=== PATIENT | female | born 1950 ===

== ENCOUNTER 2018-10-21 05:24 | Inpatient (IN) | payer MEDICARE, MEDICAID ==
[~2018-10-21] VITALS: Ht 149.9 cm; Wt 62.6 kg
[2018-10-21] VITALS (21 sets, daily range): BP systolic 104–161; BP diastolic 65–104
[2018-10-21] MEDS ORDERED: LR 1000ml 1,000 ML IVLG SCH (06:26)
--- NOTE | 2018-10-21 06:28 | Anethesia Preoperative Eval ---
Anesthesia Pre-op PMH/ROS General Date of Evaluation: Oct 21, 2018 Time of Evaluation: 06:54 Anesthesiologist: Zac ASA Score: ASA 3 Mallampati Score Class I : Soft palate, uvula, fauces, pillars visible Class II: Soft palate, uvula, fauces visible Class III: Soft palate, base of uvula visible Class IV: Only hard plate visible Mallampati Classification: Class II Surgeon: Jessie Diagnosis: R Knee Pain Surgical Procedure: R Knee Total Arthroplasty Anesthesia History: none Family History: no anesthesia problems Allergies: Coded Allergies: No Known Allergies (Unverified , 10/14/18) Medications: see eMAR Patient NPO?: Yes NPO Date: Oct 20, 2018 NPO Time: 1999 Past Medical History Cardiovascular: Reports: HTN Pulmonary: Reports: COPD Gastrointestinal/Genitourinary: Reports: GERD Neurologic/Psychiatric: Reports: depression/anxiety Anesthesia Pre-op Phys. Exam Physician Exam Last Vital Signs Date Time Temp Pulse Resp B/P (MAP) Pulse Ox O2 Delivery O2 Flow Rate FiO2 10/21/18 06:15 97.8 84 18 115/80 (92) 98 Constitutional: NAD Neurologic: CN 2-12 intact Cardiovascular: RRR Respiratory: CTA Gastrointestinal: S/NT/ND Airway Exam Mallampati Score: Class II MO: full ROM: limited Teeth: missing, intact Anesthesia Pre-op A/P Risk Assessment & Plan Assessment: ASA 3 Plan: GA, Spinal , SED Status Change Before Surgery: No Pre-Antibiotics Dru Grams Ancef IV Given Within 1 Hr of Incision: Yes Time Given: 07:16 Yung Frank MD Oct 21, 2018 06:28
[2018-10-21] MEDS ORDERED: Hydromorphone 0.5mg/0.5ml inj IVP PRN (06:30)
[2018-10-21] MEDS ORDERED: oxyCODONE HCL/Acetaminophen 5/325mg ORAL PRN (06:30)
[2018-10-21] MEDS ORDERED: Meperidine 50mg/ml Inj(FOR RIGORS ONLY) IVP PRN (06:30)
[2018-10-21] MEDS ORDERED: Tranexamic Acid 1,000 MG in NS 65 ML IVPB ONE (06:30)
[2018-10-21] MEDS ORDERED: cloNIDine 1000mcg/10ml inj ONE (06:30)
[2018-10-21] MEDS ORDERED: Norco 5mg/325mg tab ORAL PRN ×2 (06:30→12:00)
[2018-10-21] MEDS ORDERED: HYDROcodone/Acetamin 7.5/325 tab ORAL PRN ×2 (06:30→12:00)
[2018-10-21] MEDS ORDERED: Metoclopramide 10mg/2ml Inj IVP PRN (06:30)
[2018-10-21] MEDS ORDERED: Atropine Sulfate 0.4mg/ml inj IVP PRN (06:30)
[2018-10-21] MEDS ORDERED: fentaNYL 100 mcg/2 mL IV PRN (06:30)
[2018-10-21] MEDS ORDERED: DiphenhydrAMINE 50mg/ml Inj IVP PRN (06:30)
[2018-10-21] MEDS ORDERED: Midazolam 2mg/2ml Inj IVP PRN (06:30)
[2018-10-21] MEDS ORDERED: LORazepam Inj 2mg/ml 1ml IV PRN (06:30)
[2018-10-21] MEDS ORDERED: Ketorolac 30mg Inj IV PRN ×2 (06:30)
[2018-10-21] MEDS ORDERED: ZOLPIDEM TARTRA10 MG ORAL (06:31)
[2018-10-21] MEDS ORDERED: CITALOPRAM HBR20 M1 ORAL (06:31)
[2018-10-21] MEDS ORDERED: Bupivacaine 0.5% Inj 30 ml vial INJ ONE (06:31)
[2018-10-21] MEDS ORDERED: STIOLTO RESPIMAT4 GM IH (06:31)
[2018-10-21] MEDS ORDERED: IBUPROFEN600 MG ORAL (06:31)
[2018-10-21] MEDS ORDERED: LOSARTAN POTAS100 MG ORAL (06:31)
[2018-10-21] MEDS ORDERED: EPINEPHrine 1mg/1ml Amp ONE (06:32)
[2018-10-21] MEDS ORDERED: Alfentanil 2ml Inj ONE (06:36)
[2018-10-21] MEDS ORDERED: Propofol 200mg/20ml IV ONE (06:36)
[2018-10-21] MEDS ORDERED: Dexamethasone 4mg/ml vial ONE (06:36)
[2018-10-21] MEDS ORDERED: Lidocaine 1% MPF 10mg/ml 5ml ONE (06:36)
[2018-10-21] MEDS ORDERED: Sodium Chloride 10ml vial INJ ONE (06:36)
[2018-10-21] MEDS ORDERED: Bacitracin 50000 Units Vial ONE (06:51)
[2018-10-21] MEDS ORDERED: NeoSporin Gu Irrig 1ml Amp IRRIG ONE ×2 (06:51→08:27)
--- NOTE | 2018-10-21 06:58 | Pre-Procedure Note/Attestation ---
Pre-Procedure Note/Attestation Complete Prior to Procedure Planned Procedure: right Procedure Narrative: Rt total knee arthroplasty Indications for Procedure Pre-Operative Diagnosis: rt knee arthritis Attestation I attest that I discussed the nature of the procedure; its benefits; risks and complications; and alternatives (and the risks and benefits of such alternatives ), prior to the procedure, with the patient (or the patient's legal community health program representative). I attest that, if there was a reasonable possibility of needing a blood transfusion, the patient (or the patient's legal community health program representative) was given the [facility] standardized written summary, pursuant to the [employer] Blood Safety Act ([place] Health and Safety Code # 1645, as amended). I attest that I re-evaluated the patient just prior to the surgery and that there has been no change in the patient's H&P, except as documented below: none Duran Roman MD Oct 21, 2018 06:58
[2018-10-21] MEDS ORDERED: NS Irrig 1000ml ONE (07:00)
[2018-10-21] MEDS ORDERED: NS Irrig 2000ml IRRIG ONE ×2 (07:00→08:27)
[2018-10-21] MEDS ORDERED: LR 1000ml ONE (07:00)
[2018-10-21] MEDS ORDERED: Sterile Water Irrig 1000ml IRRIG ONE (07:00)
[2018-10-21] MEDS ORDERED: Milk of Magnesia 30ml Ud ORAL PRN (07:00)
[2018-10-21] MEDS ORDERED: celeBREX 200mg Cap **SURGERY PATIENTS ONLY ORAL ONE (07:00)
[2018-10-21] MEDS ORDERED: ceFAZolin 1gm IVPB IVPB ONE ×2 (07:00)
[2018-10-21] MEDS ORDERED: oxyCONTIN 20mg tab ORAL ONE (07:00)
[2018-10-21] MEDS ORDERED: ePHEDrine 50mg/ml Inj ONE ×4 (07:26→08:24)
--- NOTE | 2018-10-21 07:37 | Immediate Post-Op Evaluation ---
Immediate Post-Op Evalulation Immediate Post-Op Evalulation Procedure: R Knee Total Arthroplasty Date of Evaluation: Oct 21, 2018 Time of Evaluation: 10:05 IV Fluids: 1000 LR Blood Products: 0 Estimated Blood Loss: 25 Urinary Output: 0 Blood Pressure Systolic: 121 Blood Pressure Diastolic: 75 Pulse Rate: 93 Respiratory Rate: 16 O2 Sat by Pulse Oximetry: 100 Temperature (Fahrenheit): 97.5 Pain Score (1-10): 1 Nausea: No Vomiting: No Complications 0 Patient Status: awake, reacts, patent, none Hydration Status: adequate Dru Grams Ancef IV Given Within 1 Hr of Incision: Yes Time Given: 07:16 Yung Frank MD Oct 21, 2018 07:37
[2018-10-21] MEDS ORDERED: Bacitracin 50000 Units Vial IRRIG ONE (08:26)
[2018-10-21] MEDS: celeBREX 200mg Cap **SURGERY PATIENTS ONLY ORAL SCH (09:00)
[2018-10-21] MEDS ORDERED: Metoprolol 5mg/5ml Inj ONE (09:02)
--- NOTE | 2018-10-21 09:42 | Brief Operative Note ---
Immediate Post Operative Note Operative Note Chief Complaint: rt knee pain Pre-op Diagnosis: rt knee arthritis Procedure: rt total knee arthroplasty Post-op Diagnosis: same as pre-op Findings: consistent w/pre-op dx studies Surgeon: md maribel Holder Pile Driving: juan daniel vargas Anesthesiologist: md sally Anesthesia: general Specimen: yes Complications: none Condition: stable Fluids: ns Estimated Blood Loss: minimal Drains: none Implant(s) used?: Yes - Mari Acosta Oct 21, 2018 09:42
--- NOTE | 2018-10-21 11:05 | Diagnostic Imaging Report ---
Indication: Pain. Status post total knee arthroplasty. Technique: XRAY Knee 1-2v R Comparison: None Findings: 2 portable images were obtained of the right knee. Status post total knee arthroplasty and patellar resurfacing. No periprosthetic fracture identified. The lucency is noted at the inferior aspect of the tibial component. No bone cement is noted. Gas is noted within the joint and in the subcutaneous tissues, consistent with recent operation. IMPRESSION: Immediate postoperative appearance status post total knee arthroplasty. No evidence of periprosthetic fracture. Some lucency noted at the inferior aspect of the tibial component. No bone cement appreciated.
[2018-10-21] MEDS ORDERED: HYDROmorphone 1mg/ml Carpuject SUBQ PRN (12:00)
[2018-10-21] MEDS: D5 1/2NS w/KCl 20mEq 1,000 ML IV SCH (13:19)
[2018-10-21] MEDS: Docusate 100mg cap ORAL SCH ×3 (13:19→21:29)
--- NOTE | 2018-10-21 14:30 | Operative Note - Dictated ---
DATE OF OPERATION: 10/21/2018 PREOPERATIVE DIAGNOSIS: Right knee end-stage arthritis with significant pain. POSTOPERATIVE DIAGNOSIS: Right knee end-stage arthritis with significant pain. PROCEDURE: Right total knee arthroplasty using [place] Triathlon System, size 1 femur, size 2 tibia, size 11 mm ultra cross-linked poly and a 27 mm patellar poly, all cemented. SURGEON: Duran Roman M.D. AUTO REPAIR TECHNICIAN: Mari Morgan PA-C. ANESTHESIOLOGIST: Yung Frank M.D. ANESTHESIA: Spinal anesthesia. TOURNIQUET TIME: 70 minutes. ESTIMATED BLOOD LOSS: Less than 20 mL. COMPLICATIONS: None. BRIEF HISTORY: The patient is a very pleasant 68-year-old female, who has had ongoing right knee pain. She failed nonoperative treatment. She had injection, physical therapy, and continued to have pain. She was miserable she cannot walk morethan one block. After full discussion of risks and benefits of the surgery and complications associated with it including infection, bleeding, neurovascular complications, possibility of continued pain, stiffness, DVT, PEs, infection requiring resection arthroplasty and other surgery that may arise, she opted for surgical treatment as described above. OPERATIVE PROCEDURE: The patient was brought to the operating room and was placed supine. All pressure points were well-padded. Spinal anesthesia was induced and right knee was prepped and draped in usual sterile fashion. The right leg was exsanguinated and tourniquet was inflated to 275 mmHg. Standard anterior approach to the knee was undertaken. The incision was taken through the subcutaneous tissue. Medial parapatellar arthrotomy was performed. Hemostasis was obtained. The medial release of the deep fibers of the MCL was performed. The medial and lateral meniscus were removed. ACL and PCL were removed. The intramedullary access into the femur was then obtained and a distal femoral cut and 5 degrees of valgus was performed. At this point, measurements were made and size 1 appeared to be the right measurement. The cutting guide was placed in 3 degrees external rotation and anterior, posterior, and chamfer cuts were performed without any complication. At this point, a trial femur was applied and slightly lateralized. This fit perfectly. The PEG holes were drilled. The care was given to the tibia at this point. The posterior, medial, lateral retractors were placed in and the tibia was exposed. Extramedullary guide was used to align the mechanical axis. At this point, a minimal tibial cut was made, taken off 2 mm of the most involved side. This was the very balanced cut. This was a minimal bone resection. At this point, trialing was performed and size 2 trial appeared to be the right size. The tibial size 2 was then placed and it was punched. At this point, trialing with femur and tibia and 11 mm insert was applied. There was full extension, full flexion, excellent stability at 0, 40 degrees, 60 degrees, and 90 degrees of flexion. There was no anteroposterior instability. Wounds were thoroughly irrigated. The care was given to the patella. The patella was everted. This was a very small patella. This measured 18 mm. Therefore, a minimal patellar cut was obtained to leave a 13 mm patellar to avoid avascular necrosis. At this point, drilling of the patella was performed and a 27 mm patella appeared to be the right size. At this point, the patellar trial, femoral trial, and tibial trial and 11 mm poly was then all trialed. There was excellent patellofemoral tracking, great range of motion and great stability as described previously. There was no subluxation of the patellofemoral articulation. At this point, all wounds were thoroughly irrigated using copious amount of fluid. All trial components were removed. The cement was mixed and the bones were dried using suction and sponges. Cement was mixed and applied and tibial component, femoral component, patella components were all cemented with compression. The excess cement was removed. Once this was completed, trialing was again performed and an 11 mm poly appeared to be the right size. Therefore, an ultra cross-linked 11 mm poly was then applied and locked in. The locking mechanism was checked and rechecked and appeared to be perfect. At this point, the entire construct was reduced and range of motion and stability and patellofemoral tracking was checked as previous and appeared to be perfect as described previously. At this point, all wounds were thoroughly irrigated using copious amount of fluid. The tourniquet was deflated and there was minimal bleeding, which was stopped. Once hemostasis was obtained, the extensor mechanism was closed using #1 Vicryl suture. Subcutaneous tissue was closed using 2-0 Vicryl suture. Skin was closed using 3-0 Monocryl suture. Dermabond was applied and sterile dressing was applied and the patient was taken to recovery room in stable condition. All lap counts and instrument counts were correct. Duran Roman M.D. DR: KRISTINA JOB#: [id number] CC: RYLIE
[2018-10-21 14:33] LABS: HEMATOCRIT 39.1 % (37.0-47.0); HEMOGLOBIN 12.9 G/DL (12.0-16.0); MEAN CORPUSCULAR VOLUME 92 FL (80-99); PLATELET COUNT 278 K/UL (150-450); RED BLOOD COUNT 4.25 M/UL (4.20-5.40); RED CELL DISTRIBUTION WIDTH 11.5 % (11.6-14.8); WHITE BLOOD COUNT 13.6 K/UL (4.8-10.8)
[2018-10-21 14:41] LABS: ANION GAP 6 mmol/L (5-15); BLOOD UREA NITROGEN 13 mg/dL (7-18); CALCIUM 8.8 MG/DL (8.5-10.1); CARBON DIOXIDE 30 MMOL/L (21-32); CHLORIDE 101 MMOL/L (98-107); CREATININE 0.9 MG/DL (0.55-1.30); POTASSIUM 4.8 MMOL/L (3.5-5.1); SODIUM 137 MMOL/L (136-145)
[2018-10-21] MEDS ORDERED: ceFAZolin sod 1 GM in D5W 55 ML IV SCH (15:00)
[2018-10-21] MEDS ORDERED: Albuterol/Ipratropium 3ml neb HHN PRN (15:00)
--- NOTE | 2018-10-21 15:01 | Consultation ---
Consult Note Consult Note PULMONARY CONSULTATION 10/21/18 REFERRING PHYSICIAN: Duran Roman MD REASON FOR CONSULTATION: COPD HPI: 68 F former smoker h/o COPD on/off home O2 minimally compliant with Stiolto now POD 0 S/P R TKA. She is still lethargic post-op so hx is limited. She states she uses her inhalers some of the time, no nebs, occ O2. No SOB @ rest, some AGRCIAS but exercise is limited by DJD. No F/C/CP, no wheezing. Post- op she is AFVSS, stable on 3L. She is unsure who her dishcloth folder is. PMH: COPD, HTN, DJD PSH: R TKA ALL: NKDA Active Scripts Medications Dose Route/Sig Max Daily Dose Days Date Category Stiolto Respimat Inhal [place] (Tiotropium Br/Olodaterol HCl) 4 Gm Mist.inhal 2.5 Mcg IH PRN 10/21/18 Reported Zolpidem Tartrate* (Zolpidem Tartrate) 10 Mg Tablet 10 Mg ORAL BEDTIME PRN 10/21/18 Reported Losartan Potassium 100 Mg Tablet 100 Mg ORAL DAILY 10/21/18 Reported Citalopram Hbr* (Citalopram Hydrobromide) 20 Mg Tablet 20 Mg ORAL DAILY 10/21/18 Reported Motrin* (Ibuprofen) 600 Mg Tablet 800 Mg ORAL FOUR TIMES A DAY 10/21/18 Reported SHx: Former smoker quit 10 years ago, no drug or EtOH FHx: N/C ROS: Neg other than HPI PE: Last 24 Hour Vital Signs Date Time Temp Pulse Resp B/P (MAP) Pulse Ox O2 Delivery O2 Flow Rate FiO2 10/21/18 13:30 97.4 103 18 128/85 (99) 97 10/21/18 12:30 97.3 105 16 115/66 (82) 96 10/21/18 11:30 98.1 102 18 115/68 (84) 95 10/21/18 11:00 97.8 102 18 131/74 (93) 99 10/21/18 11:00 Nasal Cannula 3.0 10/21/18 10:47 97.8 98 13 123/75 98 Nasal Cannula 3 10/21/18 10:40 99 15 117/76 100 Nasal Cannula 3 10/21/18 10:25 93 15 129/72 100 Nasal Cannula 3 10/21/18 10:15 94 16 129/72 100 Nasal Cannula 3 10/21/18 10:04 96 16 121/78 100 Simple Mask 6 10/21/18 09:59 95 17 121/77 100 Simple Mask 6 10/21/18 09:54 97.5 94 16 121/75 99 Simple Mask 6 10/21/18 09:53 93 16 100 10/21/18 06:34 Room Air 10/21/18 06:15 97.8 84 18 115/80 (92) 98 NAD, lethargic post op NC/AT, OPC c MMM Supple s LAD or JVD CTA but distant RRR S/NT/ND c NABS No C/C/E, R leg in immobilizer/dressed Laboratory Tests Test 10/21/18 14:15 White Blood Count 13.6 K/UL (4.8-10.8) H Red Blood Count 4.25 M/UL (4.20-5.40) Hemoglobin 12.9 G/DL (12.0-16.0) Hematocrit 39.1 % (37.0-47.0) Mean Corpuscular Volume 92 FL (80-99) Mean Corpuscular Hemoglobin 30.4 PG (27.0-31.0) Mean Corpuscular Hemoglobin Concent 33.0 G/DL (32.0-36.0) Red Cell Distribution Width 11.5 % (11.6-14.8) L Platelet Count 278 K/UL (150-450) Mean Platelet Volume 6.9 FL (6.5-10.1) Neutrophils (%) (Auto) % (45.0-75.0) Lymphocytes (%) (Auto) % (20.0-45.0) Monocytes (%) (Auto) % (1.0-10.0) Eosinophils (%) (Auto) % (0.0-3.0) Basophils (%) (Auto) % (0.0-2.0) Differential Total Cells Counted 100 Neutrophils % (Manual) 92 % (45-75) H Lymphocytes % (Manual) 7 % (20-45) L Monocytes % (Manual) 1 % (1-10) Eosinophils % (Manual) 0 % (0-3) Basophils % (Manual) 0 % (0-2) Band Neutrophils 0 % (0-8) Platelet Estimate Adequate Platelet Morphology Normal Red Blood Cell Morphology Normal Sodium Level 137 MMOL/L (136-145) Potassium Level 4.8 MMOL/L (3.5-5.1) Chloride Level 101 MMOL/L (98-107) Carbon Dioxide Level 30 MMOL/L (21-32) Anion Gap 6 mmol/L (5-15) Blood Urea Nitrogen 13 mg/dL (7-18) Creatinine 0.9 MG/DL (0.55-1.30) Estimat Glomerular Filtration Rate > 60 mL/min (>60) Glucose Level 194 MG/DL (74-106) H Calcium Level 8.8 MG/DL (8.5-10.1) Assessment/Plan ASSESSMENT: DDD S/P R TKA (10/21 Dr. Roman) COPD on/off home O2 Post-op hypoxemia 2/2 underlying COPD, anesthesia and atelectasis Former smoker HTN PLAN: Optimize pulmonary hygiene/mobilize as tolerated Titrate down FiO2 to keep SaO2 > 90% Advair & Spiriva (auto sub for Stiolto) RTC and PRN DUOneb HHN's IS Post-op care per ortho Pain control/supportive care DVT Px: LMWH CXR ordered MD Ezio Meng Ashkan L. MD Oct 21, 2018 15:01
[2018-10-21] MEDS: Enoxaparin 30mg Inj SUBQ SCH (15:23)
[2018-10-21] MEDS ORDERED: NS 250 ML IVPB ONE (17:30)
[2018-10-21] MEDS ORDERED: Tubing IV Secondary IV ONE (17:56)
[2018-10-21] MEDS: Advair 250/50 Inhaler - 14 dose INH SCH (18:00)
[2018-10-21] MEDS ORDERED: Sodium Chloride 500ML 500 ML IV ONE (18:15)
[2018-10-21] MEDS ORDERED: Naloxone 2 MG in D5W 500ml 498 ML IV SCH (18:30)
[2018-10-21] MEDS ORDERED: Albuterol/Ipratropium 3ml neb HHN SCH (19:00)
[2018-10-21] MEDS ORDERED: Naloxone 0.4mg/ml Inj IVP SCH (19:00)
--- NOTE | 2018-10-21 20:07 | History and Physical ---
History of Present Illness General Date patient seen: Oct 21, 2018 Time patient seen: 19:56 Reason for Hospitalization: TKR Present Illness Allergies: Coded Allergies: No Known Allergies (Unverified , 10/14/18) Medication History Scheduled Citalopram Hydrobromide* (Citalopram Hbr*), 20 MG ORAL DAILY, (Reported) Ibuprofen* (Motrin*), 800 MG ORAL FOUR TIMES A DAY, (Reported) Losartan Potassium (Losartan Potassium), 100 MG ORAL DAILY, (Reported) Tiotropium Br/Olodaterol HCl (Stiolto Respimat Inhal [place]), 2.5 MCG IH PRN, ( Reported) Scheduled PRN Zolpidem Tartrate* (Zolpidem Tartrate*), 10 MG ORAL BEDTIME PRN for Insomnia, ( Reported) Patient History Healthcare decision maker seth() Resuscitation status Full Code Advanced Directive on File No Review of Systems ROS Narrative patient has hypercapnia transfered to ICU and got her on bipap and narcan was given. per family has historyof severe COPd has been a smoker 2 pack per day int he past has had a hospitlaization last year one week in for pneumonia she was tachycardic and became altered i was notified to further eval she was givennorco had ABG noted othave co2 over 100 bipap was started and transfered to icu more improved now responds to verb al stimulio Physical Exam General Appearance: WD/WN, other - has bipap on HEENT: normocephalic Neck: other - no JVD Respiratory/Chest: other - distnat breasth sounds prolonged exp phae no wheezing Cardiovascular/Chest: other - tachy regular no rubs Abdomen: non tender, soft Extremities: non-pitting - hemovac, other - no edema Neurologic: other - responds to verbal stimuli Last 24 Hour Vital Signs Date Time Temp Pulse Resp B/P (MAP) Pulse Ox O2 Delivery O2 Flow Rate FiO2 10/21/18 19:33 103 15 Bi-pap 40 10/21/18 19:30 103 15 94 Facial 40 10/21/18 17:00 105 17 124/80 (95) 96 10/21/18 16:50 110 16 153/94 (113) 96 10/21/18 16:00 97.2 106 18 112/70 (84) 98 10/21/18 13:30 97.4 103 18 128/85 (99) 97 10/21/18 12:30 97.3 105 16 115/66 (82) 96 10/21/18 11:30 98.1 102 18 115/68 (84) 95 10/21/18 11:00 97.8 102 18 131/74 (93) 99 10/21/18 11:00 Nasal Cannula 3.0 10/21/18 10:47 97.8 98 13 123/75 98 Nasal Cannula 3 10/21/18 10:40 99 15 117/76 100 Nasal Cannula 3 10/21/18 10:25 93 15 129/72 100 Nasal Cannula 3 10/21/18 10:15 94 16 129/72 100 Nasal Cannula 3 10/21/18 10:04 96 16 121/78 100 Simple Mask 6 10/21/18 09:59 95 17 121/77 100 Simple Mask 6 10/21/18 09:54 97.5 94 16 121/75 99 Simple Mask 6 10/21/18 09:53 93 16 100 10/21/18 06:34 Room Air 10/21/18 06:15 97.8 84 18 115/80 (92) 98 Intake and Output 10/20/18 10/21/18 19:00 07:00 # Voids 1 Laboratory Tests Test 10/21/18 14:15 10/21/18 18:24 White Blood Count 13.6 K/UL (4.8-10.8) H Red Blood Count 4.25 M/UL (4.20-5.40) Hemoglobin 12.9 G/DL (12.0-16.0) Hematocrit 39.1 % (37.0-47.0) Mean Corpuscular Volume 92 FL (80-99) Mean Corpuscular Hemoglobin 30.4 PG (27.0-31.0) Mean Corpuscular Hemoglobin Concent 33.0 G/DL (32.0-36.0) Red Cell Distribution Width 11.5 % (11.6-14.8) L Platelet Count 278 K/UL (150-450) Mean Platelet Volume 6.9 FL (6.5-10.1) Neutrophils (%) (Auto) % (45.0-75.0) Lymphocytes (%) (Auto) % (20.0-45.0) Monocytes (%) (Auto) % (1.0-10.0) Eosinophils (%) (Auto) % (0.0-3.0) Basophils (%) (Auto) % (0.0-2.0) Differential Total Cells Counted 100 Neutrophils % (Manual) 92 % (45-75) H Lymphocytes % (Manual) 7 % (20-45) L Monocytes % (Manual) 1 % (1-10) Eosinophils % (Manual) 0 % (0-3) Basophils % (Manual) 0 % (0-2) Band Neutrophils 0 % (0-8) Platelet Estimate Adequate Platelet Morphology Normal Red Blood Cell Morphology Normal Sodium Level 137 MMOL/L (136-145) Potassium Level 4.8 MMOL/L (3.5-5.1) Chloride Level 101 MMOL/L (98-107) Carbon Dioxide Level 30 MMOL/L (21-32) Anion Gap 6 mmol/L (5-15) Blood Urea Nitrogen 13 mg/dL (7-18) Creatinine 0.9 MG/DL (0.55-1.30) Estimat Glomerular Filtration Rate > 60 mL/min (>60) Glucose Level 194 MG/DL (74-106) H Calcium Level 8.8 MG/DL (8.5-10.1) Arterial Blood pH 7.086 (7.350-7.450) Arterial Blood Partial Pressure CO2 104.8 mmHg (35.0-45.0) *H Arterial Blood Partial Pressure O2 95.2 mmHg (75.0-100.0) Arterial Blood HCO3 30.8 mmol/L (22.0-26.0) H Arterial Blood Oxygen Saturation 95.0 % (95-100) Arterial Blood Base Excess -2.2 (-2-2) L Blair Test Positive Height (Feet): 4 Height (Inches): 11.00 Weight (Pounds): 138 Medications Current Medications Medications (Trade) Dose Ordered Sig/Singh Route PRN Reason Start Time Stop Time Status Last Admin Dose Admin Acetaminophen (Tylenol) 650 mg Q4H PRN ORAL temp>100.2 or headache 10/21/18 12:00 11/20/18 11:59 Acetaminophen/ Hydrocodone Bitart ([place] 5/325) 2 tab Q4H PRN ORAL pain scores 4-10 10/21/18 12:00 10/28/18 11:59 Acetaminophen/ Hydrocodone Bitart ([place] 7.5/325) 1 tab Q4H PRN ORAL Mild Pain (Pain Scale 1-3) 10/21/18 12:00 10/28/18 11:59 10/21/18 14:19 Albuterol/ Ipratropium (Albuterol/ Ipratropium) 3 ml Q4H PRN HHN Shortness of Breath 10/21/18 15:00 10/26/18 14:59 Albuterol/ Ipratropium (Albuterol/ Ipratropium) 3 ml Q6HRT HHN 10/21/18 19:00 10/26/18 18:59 Cefazolin Sodium 1 gm/Dextrose 55 ml @ 110 mls/hr Q8H IV 10/21/18 15:00 10/21/18 23:29 10/21/18 15:23 Celecoxib (CeleBREX) 200 mg DAILY ORAL 10/21/18 09:00 11/20/18 08:59 Dextrose/ Electrolytes 1,000 ml @ 75 mls/hr [id number] IV 10/21/18 13:00 11/20/18 12:59 10/21/18 13:19 Docusate Sodium (Colace) 100 mg THREE TIMES A DAY ORAL 10/21/18 13:00 11/20/18 12:59 10/21/18 13:19 Enoxaparin Sodium (Lovenox) 30 mg EVERY 12 HOURS SUBQ 10/21/18 16:00 11/20/18 15:59 10/21/18 15:23 Ferrous Sulfate (Feosol) 325 mg THREE TIMES A DAY ORAL 10/21/18 13:00 11/20/18 12:59 10/21/18 13:19 Hydromorphone HCl (Dilaudid) 1 mg Q4H PRN SUBQ Mild Pain (Pain Scale 1-3) 10/21/18 12:00 10/28/18 11:59 Hydromorphone HCl (Dilaudid) 2 mg Q4H PRN SUBQ Moderate Pain (Pain Scale 4-6) 10/21/18 12:00 10/28/18 11:59 10/21/18 16:21 Losartan Potassium (Cozaar) 100 mg DAILY ORAL 10/22/18 09:00 11/21/18 08:59 Magnesium Hydroxide (Mom) 30 ml DAILY PRN ORAL Constipation 10/21/18 07:00 11/20/18 06:59 Naloxone HCl (Narcan) 0.1 mg PRN IV . 10/21/18 18:45 11/20/18 18:44 10/21/18 18:37 Naloxone HCl (Narcan) 0.4 mg ONCE IVP 10/21/18 19:00 10/21/18 20:00 Ondansetron HCl (Zofran) 4 mg Q6H PRN IVP Nausea & Vomiting 10/21/18 12:00 11/20/18 11:59 10/21/18 16:26 Salmeterol Xinafoate/ Fluticasone (Advair 250/50 Diskus) 1 puffs BID INH 10/21/18 18:00 11/20/18 17:59 Temazepam (Restoril) 7.5 mg HSPRN PRN ORAL Insomnia 10/21/18 07:00 10/28/18 06:59 Tiotropium [place] (Spiriva Inhaler) 1 puff DAILY INH 10/22/18 09:00 11/21/18 08:59 Assessment/Plan Status Narrative s/p right total knee arthroplasty historyof severe COPd Cor narcosis historyof hyeprtension Assessment/Plan transfered to icu given narcan will stop the heavy norcotic only to use tylenol 1000 mg po tid for pain and tramdol 50 q 4 opr[address] pain for now place patient on bipap will need to further eval she is very sensitive to the pain medication supplement o2 dt prophyalxis with lovenox antibiotic prophyalxis [facility] history jass uses cardizem as patient may require to get Matthew Hopper MD Oct 21, 2018 20:07
--- NOTE | 2018-10-21 20:22 | General Progress Note ---
Assessment/Plan Assessment/Plan abg 7.086 7.183 104 79.1 95 88.5 29 30 started on bipap chest xray left hemidiaphragm id higher than right. tramadol for pain tylenol 1 gram tid stop oxycodone Subjective Allergies: Coded Allergies: No Known Allergies (Unverified , 10/14/18) Objective Last 24 Hour Vital Signs Date Time Temp Pulse Resp B/P (MAP) Pulse Ox O2 Delivery O2 Flow Rate FiO2 10/21/18 19:33 103 15 Bi-pap 40 10/21/18 19:30 103 15 94 Facial 40 10/21/18 17:00 105 17 124/80 (95) 96 10/21/18 16:50 110 16 153/94 (113) 96 10/21/18 16:00 97.2 106 18 112/70 (84) 98 10/21/18 13:30 97.4 103 18 128/85 (99) 97 10/21/18 12:30 97.3 105 16 115/66 (82) 96 10/21/18 11:30 98.1 102 18 115/68 (84) 95 10/21/18 11:00 97.8 102 18 131/74 (93) 99 10/21/18 11:00 Nasal Cannula 3.0 10/21/18 10:47 97.8 98 13 123/75 98 Nasal Cannula 3 10/21/18 10:40 99 15 117/76 100 Nasal Cannula 3 10/21/18 10:25 93 15 129/72 100 Nasal Cannula 3 10/21/18 10:15 94 16 129/72 100 Nasal Cannula 3 10/21/18 10:04 96 16 121/78 100 Simple Mask 6 10/21/18 09:59 95 17 121/77 100 Simple Mask 6 10/21/18 09:54 97.5 94 16 121/75 99 Simple Mask 6 10/21/18 09:53 93 16 100 10/21/18 06:34 Room Air 10/21/18 06:15 97.8 84 18 115/80 (92) 98 Intake and Output 10/20/18 10/21/18 19:00 07:00 # Voids 1 Laboratory Tests 10/21/18 14:15: White Blood Count 13.6H, Red Blood Count 4.25, Hemoglobin 12.9, Hematocrit 39.1 , Mean Corpuscular Volume 92, Mean Corpuscular Hemoglobin 30.4, Mean Corpuscular Hemoglobin Concent 33.0, Red Cell Distribution Width 11.5L, Platelet Count 278, Mean Platelet Volume 6.9, Neutrophils (%) (Auto) , Lymphocytes (%) (Auto) , Monocytes (%) (Auto) , Eosinophils (%) (Auto) , Basophils (%) (Auto) , Differential Total Cells Counted 100, Neutrophils % ( Manual) 92H, Lymphocytes % (Manual) 7L, Monocytes % (Manual) 1, Eosinophils % ( Manual) 0, Basophils % (Manual) 0, Band Neutrophils 0, Platelet Estimate Adequate, Platelet Morphology Normal, Red Blood Cell Morphology Normal, Sodium Level 137, Potassium Level 4.8, Chloride Level 101, Carbon Dioxide Level 30, Anion Gap 6, Blood Urea Nitrogen 13, Creatinine 0.9, Estimat Glomerular Filtration Rate > 60, Glucose Level 194H, Calcium Level 8.8 10/21/18 18:24: Arterial Blood pH 7.086*L, Arterial Blood Partial Pressure CO2 104.8*H, Arterial Blood Partial Pressure O2 95.2, Arterial Blood HCO3 30.8H, Arterial Blood Oxygen Saturation 95.0, Arterial Blood Base Excess -2.2L, Blair Test Positive 10/21/18 19:47: Arterial Blood pH 7.183*L, Arterial Blood Partial Pressure CO2 79.1*H, Arterial Blood Partial Pressure O2 88.5, Arterial Blood HCO3 29.1H, Arterial Blood Oxygen Saturation 95.1, Arterial Blood Base Excess -1.2, Blair Test Positive Height (Feet): 4 Height (Inches): 11.00 Weight (Pounds): 138 Matthew Helms MD Oct 21, 2018 20:22
[2018-10-21] MEDS: ceFAZolin sod 1 GM in D5W 55 ML IV SCH (22:42)
[2018-10-21] MEDS: dilTIAZem HCl 60mg tab ORAL SCH (23:30)
[2018-10-22] VITALS (24 sets, daily range): BP systolic 103–147; BP diastolic 58–84
[2018-10-22] MEDS: Ipratropium 0.02% Inh Soln 2.5ml UD HHN SCH ×2 (00:50→07:02)
[2018-10-22] MEDS: traMADol 50mg tab ORAL PRN ×3 (03:21→20:55)
[2018-10-22] MEDS: D5 1/2NS w/KCl 20mEq 1,000 ML IV SCH ×2 (04:24→16:00)
[2018-10-22 05:36] LABS: HEMATOCRIT 35.2 % (37.0-47.0); HEMOGLOBIN 11.4 G/DL (12.0-16.0); MEAN CORPUSCULAR VOLUME 93 FL (80-99); PLATELET COUNT 251 K/UL (150-450); RED BLOOD COUNT 3.78 M/UL (4.20-5.40); RED CELL DISTRIBUTION WIDTH 11.6 % (11.6-14.8); WHITE BLOOD COUNT 17.9 K/UL (4.8-10.8)
[2018-10-22] MEDS: dilTIAZem HCl 60mg tab ORAL SCH ×3 (05:48→18:00)
[2018-10-22 05:50] LABS: ANION GAP 6 mmol/L (5-15); BLOOD UREA NITROGEN 15 mg/dL (7-18); CALCIUM 8.4 MG/DL (8.5-10.1); CARBON DIOXIDE 31 MMOL/L (21-32); CHLORIDE 100 MMOL/L (98-107); CREATININE 0.9 MG/DL (0.55-1.30); SODIUM 137 MMOL/L (136-145)
[2018-10-22] MEDS: ceFAZolin sod 1 GM in D5W 55 ML IV SCH (06:17)
--- NOTE | 2018-10-22 07:56 | Orthopedic Progress Note ---
Orthopedic - Progress Note Subjective Symptoms: c/o post-op knee pain, other - transfered to ICU last night after hypotension/desat episode. now on bipap Objective Laboratory Tests Test 10/21/18 14:15 10/21/18 18:24 10/21/18 19:47 10/21/18 23:54 White Blood Count 13.6 K/UL (4.8-10.8) H Red Blood Count 4.25 M/UL (4.20-5.40) Hemoglobin 12.9 G/DL (12.0-16.0) Hematocrit 39.1 % (37.0-47.0) Mean Corpuscular Volume 92 FL (80-99) Mean Corpuscular Hemoglobin 30.4 PG (27.0-31.0) Mean Corpuscular Hemoglobin Concent 33.0 G/DL (32.0-36.0) Red Cell Distribution Width 11.5 % (11.6-14.8) L Platelet Count 278 K/UL (150-450) Mean Platelet Volume 6.9 FL (6.5-10.1) Neutrophils (%) (Auto) % (45.0-75.0) Lymphocytes (%) (Auto) % (20.0-45.0) Monocytes (%) (Auto) % (1.0-10.0) Eosinophils (%) (Auto) % (0.0-3.0) Basophils (%) (Auto) % (0.0-2.0) Differential Total Cells Counted 100 Neutrophils % (Manual) 92 % (45-75) H Lymphocytes % (Manual) 7 % (20-45) L Monocytes % (Manual) 1 % (1-10) Eosinophils % (Manual) 0 % (0-3) Basophils % (Manual) 0 % (0-2) Band Neutrophils 0 % (0-8) Platelet Estimate Adequate Platelet Morphology Normal Red Blood Cell Morphology Normal Sodium Level 137 MMOL/L (136-145) Potassium Level 4.8 MMOL/L (3.5-5.1) Chloride Level 101 MMOL/L (98-107) Carbon Dioxide Level 30 MMOL/L (21-32) Anion Gap 6 mmol/L (5-15) Blood Urea Nitrogen 13 mg/dL (7-18) Creatinine 0.9 MG/DL (0.55-1.30) Estimat Glomerular Filtration Rate > 60 mL/min (>60) Glucose Level 194 MG/DL (74-106) H Calcium Level 8.8 MG/DL (8.5-10.1) Arterial Blood pH 7.086 (7.350-7.450) 7.183 (7.350-7.450) 7.228 (7.350-7.450) Arterial Blood Partial Pressure CO2 104.8 mmHg (35.0-45.0) *H 79.1 mmHg (35.0-45.0) *H 70.7 mmHg (35.0-45.0) *H Arterial Blood Partial Pressure O2 95.2 mmHg (75.0-100.0) 88.5 mmHg (75.0-100.0) 90.3 mmHg (75.0-100.0) Arterial Blood HCO3 30.8 mmol/L (22.0-26.0) H 29.1 mmol/L (22.0-26.0) H 28.8 mmol/L (22.0-26.0) H Arterial Blood Oxygen Saturation 95.0 % (95-100) 95.1 % (95-100) 96.0 % (95-100) Arterial Blood Base Excess -2.2 (-2-2) L -1.2 (-2-2) -0.4 (-2-2) Blair Test Positive Positive Positive Test 10/22/18 04:35 10/22/18 06:52 White Blood Count 17.9 K/UL (4.8-10.8) H Red Blood Count 3.78 M/UL (4.20-5.40) L Hemoglobin 11.4 G/DL (12.0-16.0) L Hematocrit 35.2 % (37.0-47.0) L Mean Corpuscular Volume 93 FL (80-99) Mean Corpuscular Hemoglobin 30.2 PG (27.0-31.0) Mean Corpuscular Hemoglobin Concent 32.4 G/DL (32.0-36.0) Red Cell Distribution Width 11.6 % (11.6-14.8) Platelet Count 251 K/UL (150-450) Mean Platelet Volume 7.2 FL (6.5-10.1) Neutrophils (%) (Auto) % (45.0-75.0) Lymphocytes (%) (Auto) % (20.0-45.0) Monocytes (%) (Auto) % (1.0-10.0) Eosinophils (%) (Auto) % (0.0-3.0) Basophils (%) (Auto) % (0.0-2.0) Neutrophils % (Manual) Pending Lymphocytes % (Manual) Pending Platelet Estimate Pending Platelet Morphology Pending Sodium Level 137 MMOL/L (136-145) Potassium Level 5.0 MMOL/L (3.5-5.1) Chloride Level 100 MMOL/L (98-107) Carbon Dioxide Level 31 MMOL/L (21-32) Anion Gap 6 mmol/L (5-15) Blood Urea Nitrogen 15 mg/dL (7-18) Creatinine 0.9 MG/DL (0.55-1.30) Estimat Glomerular Filtration Rate > 60 mL/min (>60) Glucose Level 172 MG/DL (74-106) H Calcium Level 8.4 MG/DL (8.5-10.1) L Arterial Blood pH 7.321 (7.350-7.450) Arterial Blood Partial Pressure CO2 60.9 mmHg (35.0-45.0) *H Arterial Blood Partial Pressure O2 75.7 mmHg (75.0-100.0) Arterial Blood HCO3 30.7 mmol/L (22.0-26.0) H Arterial Blood Oxygen Saturation 94.9 % (95-100) L Arterial Blood Base Excess 3.3 (-2-2) H Blair Test Positive Laboratory Tests Test 10/21/18 14:15 10/21/18 18:24 10/21/18 19:47 10/21/18 23:54 White Blood Count 13.6 K/UL (4.8-10.8) H Red Blood Count 4.25 M/UL (4.20-5.40) Hemoglobin 12.9 G/DL (12.0-16.0) Hematocrit 39.1 % (37.0-47.0) Mean Corpuscular Volume 92 FL (80-99) Mean Corpuscular Hemoglobin 30.4 PG (27.0-31.0) Mean Corpuscular Hemoglobin Concent 33.0 G/DL (32.0-36.0) Red Cell Distribution Width 11.5 % (11.6-14.8) L Platelet Count 278 K/UL (150-450) Mean Platelet Volume 6.9 FL (6.5-10.1) Neutrophils (%) (Auto) % (45.0-75.0) Lymphocytes (%) (Auto) % (20.0-45.0) Monocytes (%) (Auto) % (1.0-10.0) Eosinophils (%) (Auto) % (0.0-3.0) Basophils (%) (Auto) % (0.0-2.0) Differential Total Cells Counted 100 Neutrophils % (Manual) 92 % (45-75) H Lymphocytes % (Manual) 7 % (20-45) L Monocytes % (Manual) 1 % (1-10) Eosinophils % (Manual) 0 % (0-3) Basophils % (Manual) 0 % (0-2) Band Neutrophils 0 % (0-8) Platelet Estimate Adequate Platelet Morphology Normal Red Blood Cell Morphology Normal Sodium Level 137 MMOL/L (136-145) Potassium Level 4.8 MMOL/L (3.5-5.1) Chloride Level 101 MMOL/L (98-107) Carbon Dioxide Level 30 MMOL/L (21-32) Anion Gap 6 mmol/L (5-15) Blood Urea Nitrogen 13 mg/dL (7-18) Creatinine 0.9 MG/DL (0.55-1.30) Estimat Glomerular Filtration Rate > 60 mL/min (>60) Glucose Level 194 MG/DL (74-106) H Calcium Level 8.8 MG/DL (8.5-10.1) Arterial Blood pH 7.086 (7.350-7.450) 7.183 (7.350-7.450) 7.228 (7.350-7.450) Arterial Blood Partial Pressure CO2 104.8 mmHg (35.0-45.0) *H 79.1 mmHg (35.0-45.0) *H 70.7 mmHg (35.0-45.0) *H Arterial Blood Partial Pressure O2 95.2 mmHg (75.0-100.0) 88.5 mmHg (75.0-100.0) 90.3 mmHg (75.0-100.0) Arterial Blood HCO3 30.8 mmol/L (22.0-26.0) H 29.1 mmol/L (22.0-26.0) H 28.8 mmol/L (22.0-26.0) H Arterial Blood Oxygen Saturation 95.0 % (95-100) 95.1 % (95-100) 96.0 % (95-100) Arterial Blood Base Excess -2.2 (-2-2) L -1.2 (-2-2) -0.4 (-2-2) Blair Test Positive Positive Positive Test 10/22/18 04:35 10/22/18 06:52 White Blood Count 17.9 K/UL (4.8-10.8) H Red Blood Count 3.78 M/UL (4.20-5.40) L Hemoglobin 11.4 G/DL (12.0-16.0) L Hematocrit 35.2 % (37.0-47.0) L Mean Corpuscular Volume 93 FL (80-99) Mean Corpuscular Hemoglobin 30.2 PG (27.0-31.0) Mean Corpuscular Hemoglobin Concent 32.4 G/DL (32.0-36.0) Red Cell Distribution Width 11.6 % (11.6-14.8) Platelet Count 251 K/UL (150-450) Mean Platelet Volume 7.2 FL (6.5-10.1) Neutrophils (%) (Auto) % (45.0-75.0) Lymphocytes (%) (Auto) % (20.0-45.0) Monocytes (%) (Auto) % (1.0-10.0) Eosinophils (%) (Auto) % (0.0-3.0) Basophils (%) (Auto) % (0.0-2.0) Neutrophils % (Manual) Pending Lymphocytes % (Manual) Pending Platelet Estimate Pending Platelet Morphology Pending Sodium Level 137 MMOL/L (136-145) Potassium Level 5.0 MMOL/L (3.5-5.1) Chloride Level 100 MMOL/L (98-107) Carbon Dioxide Level 31 MMOL/L (21-32) Anion Gap 6 mmol/L (5-15) Blood Urea Nitrogen 15 mg/dL (7-18) Creatinine 0.9 MG/DL (0.55-1.30) Estimat Glomerular Filtration Rate > 60 mL/min (>60) Glucose Level 172 MG/DL (74-106) H Calcium Level 8.4 MG/DL (8.5-10.1) L Arterial Blood pH 7.321 (7.350-7.450) Arterial Blood Partial Pressure CO2 60.9 mmHg (35.0-45.0) *H Arterial Blood Partial Pressure O2 75.7 mmHg (75.0-100.0) Arterial Blood HCO3 30.7 mmol/L (22.0-26.0) H Arterial Blood Oxygen Saturation 94.9 % (95-100) L Arterial Blood Base Excess 3.3 (-2-2) H Blair Test Positive Last 24 Hour Vital Signs Date Time Temp Pulse Resp B/P (MAP) Pulse Ox O2 Delivery O2 Flow Rate FiO2 10/22/18 07:13 101 25 100 Bi-pap 30 10/22/18 07:02 105 20 99 Bi-pap 30 10/22/18 06:48 104 25 99 Facial 30 10/22/18 06:00 107 25 127/60 (82) 93 10/22/18 05:48 102 128/60 10/22/18 05:18 97 18 98 Facial 30 10/22/18 05:00 96 21 128/60 (82) 98 10/22/18 04:00 97.5 96 16 103/76 (85) 97 10/22/18 04:00 96 10/22/18 04:00 30 10/22/18 04:00 Bi-pap 10/22/18 03:24 94 19 97 Facial 30 10/22/18 03:00 97 20 120/69 (86) 97 10/22/18 02:00 97 19 103/84 (90) 96 10/22/18 01:09 97 20 100 Bi-pap 30 10/22/18 01:00 99 14 128/69 (88) 95 10/22/18 00:58 99 14 95 Bi-pap 30 10/22/18 00:57 100 17 97 Facial 30 10/22/18 00:49 100 14 96 Nasal Cannula 3.0 10/22/18 00:00 97.4 101 18 119/76 (90) 97 10/22/18 00:00 30 10/22/18 00:00 Bi-pap 10/22/18 00:00 101 10/21/18 23:30 99 113/64 10/21/18 23:00 96 15 97 Facial 30 10/21/18 23:00 97 15 114/69 (84) 98 18 22:00 99 15 130/77 (94) 98 18 21:00 102 14 104/65 (78) 98 18 20:46 102 15 98 Facial 40 18 20:24 101 16 100 Bi-pap 40 10/21/18 20:18 103 15 94 Bi-pap 40 10/21/18 20:00 Bi-pap 10/21/18 20:00 40 10/21/18 20:00 102 10/21/18 20:00 97.4 100 12 114/79 (91) 96 10/21/18 19:33 103 15 Bi-pap 40 10/21/18 19:30 103 15 94 Facial 40 10/21/18 18:30 97.5 108 18 143/91 (108) 95 10/21/18 18:15 98.1 123 24 161/104 (123) 95 10/21/18 17:00 105 17 124/80 (95) 96 10/21/18 16:50 110 16 153/94 (113) 96 10/21/18 16:00 97.2 106 18 112/70 (84) 98 10/21/18 13:30 97.4 103 18 128/85 (99) 97 10/21/18 12:30 97.3 105 16 115/66 (82) 96 10/21/18 11:30 98.1 102 18 115/68 (84) 95 10/21/18 11:00 97.8 102 18 131/74 (93) 99 10/21/18 11:00 Nasal Cannula 3.0 10/21/18 10:47 97.8 98 13 123/75 98 Nasal Cannula 3 10/21/18 10:40 99 15 117/76 100 Nasal Cannula 3 10/21/18 10:25 93 15 129/72 100 Nasal Cannula 3 10/21/18 10:15 94 16 129/72 100 Nasal Cannula 3 10/21/18 10:04 96 16 121/78 100 Simple Mask 6 10/21/18 09:59 95 17 121/77 100 Simple Mask 6 10/21/18 09:54 97.5 94 16 121/75 99 Simple Mask 6 10/21/18 09:53 93 16 100 Intake and Output 10/21/18 10/22/18 19:00 07:00 Intake Total 1630 ml 1097.5 ml Output Total 325 ml 555 ml Balance 1305 ml 542.5 ml Intake Oral 100 ml 180 ml IV Total 1530 ml 917.5 ml Output Urine Total 300 ml 355 ml Emesis 200 ml Estimated Blood Loss 25 ml Laboratory Tests Test 10/21/18 14:15 10/21/18 18:24 10/21/18 19:47 10/21/18 23:54 White Blood Count 13.6 K/UL (4.8-10.8) H Red Blood Count 4.25 M/UL (4.20-5.40) Hemoglobin 12.9 G/DL (12.0-16.0) Hematocrit 39.1 % (37.0-47.0) Mean Corpuscular Volume 92 FL (80-99) Mean Corpuscular Hemoglobin 30.4 PG (27.0-31.0) Mean Corpuscular Hemoglobin Concent 33.0 G/DL (32.0-36.0) Red Cell Distribution Width 11.5 % (11.6-14.8) L Platelet Count 278 K/UL (150-450) Mean Platelet Volume 6.9 FL (6.5-10.1) Neutrophils (%) (Auto) % (45.0-75.0) Lymphocytes (%) (Auto) % (20.0-45.0) Monocytes (%) (Auto) % (1.0-10.0) Eosinophils (%) (Auto) % (0.0-3.0) Basophils (%) (Auto) % (0.0-2.0) Differential Total Cells Counted 100 Neutrophils % (Manual) 92 % (45-75) H Lymphocytes % (Manual) 7 % (20-45) L Monocytes % (Manual) 1 % (1-10) Eosinophils % (Manual) 0 % (0-3) Basophils % (Manual) 0 % (0-2) Band Neutrophils 0 % (0-8) Platelet Estimate Adequate Platelet Morphology Normal Red Blood Cell Morphology Normal Sodium Level 137 MMOL/L (136-145) Potassium Level 4.8 MMOL/L (3.5-5.1) Chloride Level 101 MMOL/L (98-107) Carbon Dioxide Level 30 MMOL/L (21-32) Anion Gap 6 mmol/L (5-15) Blood Urea Nitrogen 13 mg/dL (7-18) Creatinine 0.9 MG/DL (0.55-1.30) Estimat Glomerular Filtration Rate > 60 mL/min (>60) Glucose Level 194 MG/DL (74-106) H Calcium Level 8.8 MG/DL (8.5-10.1) Arterial Blood pH 7.086 (7.350-7.450) 7.183 (7.350-7.450) 7.228 (7.350-7.450) Arterial Blood Partial Pressure CO2 104.8 mmHg (35.0-45.0) *H 79.1 mmHg (35.0-45.0) *H 70.7 mmHg (35.0-45.0) *H Arterial Blood Partial Pressure O2 95.2 mmHg (75.0-100.0) 88.5 mmHg (75.0-100.0) 90.3 mmHg (75.0-100.0) Arterial Blood HCO3 30.8 mmol/L (22.0-26.0) H 29.1 mmol/L (22.0-26.0) H 28.8 mmol/L (22.0-26.0) H Arterial Blood Oxygen Saturation 95.0 % (95-100) 95.1 % (95-100) 96.0 % (95-100) Arterial Blood Base Excess -2.2 (-2-2) L -1.2 (-2-2) -0.4 (-2-2) Blair Test Positive Positive Positive Test 10/22/18 04:35 10/22/18 06:52 White Blood Count 17.9 K/UL (4.8-10.8) H Red Blood Count 3.78 M/UL (4.20-5.40) L Hemoglobin 11.4 G/DL (12.0-16.0) L Hematocrit 35.2 % (37.0-47.0) L Mean Corpuscular Volume 93 FL (80-99) Mean Corpuscular Hemoglobin 30.2 PG (27.0-31.0) Mean Corpuscular Hemoglobin Concent 32.4 G/DL (32.0-36.0) Red Cell Distribution Width 11.6 % (11.6-14.8) Platelet Count 251 K/UL (150-450) Mean Platelet Volume 7.2 FL (6.5-10.1) Neutrophils (%) (Auto) % (45.0-75.0) Lymphocytes (%) (Auto) % (20.0-45.0) Monocytes (%) (Auto) % (1.0-10.0) Eosinophils (%) (Auto) % (0.0-3.0) Basophils (%) (Auto) % (0.0-2.0) Neutrophils % (Manual) Pending Lymphocytes % (Manual) Pending Platelet Estimate Pending Platelet Morphology Pending Sodium Level 137 MMOL/L (136-145) Potassium Level 5.0 MMOL/L (3.5-5.1) Chloride Level 100 MMOL/L (98-107) Carbon Dioxide Level 31 MMOL/L (21-32) Anion Gap 6 mmol/L (5-15) Blood Urea Nitrogen 15 mg/dL (7-18) Creatinine 0.9 MG/DL (0.55-1.30) Estimat Glomerular Filtration Rate > 60 mL/min (>60) Glucose Level 172 MG/DL (74-106) H Calcium Level 8.4 MG/DL (8.5-10.1) L Arterial Blood pH 7.321 (7.350-7.450) Arterial Blood Partial Pressure CO2 60.9 mmHg (35.0-45.0) *H Arterial Blood Partial Pressure O2 75.7 mmHg (75.0-100.0) Arterial Blood HCO3 30.7 mmol/L (22.0-26.0) H Arterial Blood Oxygen Saturation 94.9 % (95-100) L Arterial Blood Base Excess 3.3 (-2-2) H Blair Test Positive Wound: clean, dry, intact Drains: none Neuro Status: normal Vascular Status: normal Additional Comments knee xray reviewed Assessment Post-op Diagnosis POD 1 Procedure Performed rt total knee arthroplasty Plan Plan: pain management - narcotics d/c'd due to hypotension risk- tramadol and tylenol ordered., other - continue pulm care and once optimized can transfer back to floor to begin post op PT Mari Morgan Oct 22, 2018 07:56
--- NOTE | 2018-10-22 08:59 | Pulmonolgy Critical Care Note ---
Critical Care - Asmt/Plan Problems: (1) Hypercapnic respiratory failure (2) COPD (chronic obstructive pulmonary disease) (3) Arthritis of knee (4) Total knee replacement status Assessment/Plan: Assessment/Plan ASSESSMENT: Acute on chronic hypercapnic and hypoxemic respiratory failure DDD S/P R TKA (10/21 Dr. Roman) COPD on/off home O2 Former smoker HTN PLAN: Keep on continuous BiPAP 17/04 for now ---> will check a repeat ~ noon, if gas exchange improved will attempt to decrease IPAP and then take breaks from BiPAP as tolerated Optimize pulmonary hygiene/mobilize as tolerated Titrate down FiO2 to keep SaO2 > 90% Advair & Spiriva (auto sub for Stiolto) RTC and PRN DUOneb HHN's IS Post-op care per ortho Pain control/supportive care --> AVOID NARCOTICS/SEDATIVES DVT Px: LMWH F/u CXR F/U TTE FC 60 min Critical Care - Objective Last 24 Hour Vital Signs Date Time Temp Pulse Resp B/P (MAP) Pulse Ox O2 Delivery O2 Flow Rate FiO2 10/22/18 08:20 99 10/22/18 08:00 30 10/22/18 08:00 Bi-pap 10/22/18 08:00 97.5 99 16 119/75 (90) 97 10/22/18 07:13 101 25 100 Bi-pap 30 10/22/18 07:02 105 20 99 Bi-pap 30 10/22/18 07:00 100 25 122/61 (81) 93 10/22/18 06:48 104 25 99 Facial 30 10/22/18 06:00 107 25 127/60 (82) 93 10/22/18 05:48 102 128/60 10/22/18 05:18 97 18 98 Facial 30 10/22/18 05:00 96 21 128/60 (82) 98 10/22/18 04:00 97.5 96 16 103/76 (85) 97 10/22/18 04:00 96 10/22/18 04:00 30 10/22/18 04:00 Bi-pap 10/22/18 03:24 94 19 97 Facial 30 10/22/18 03:00 97 20 120/69 (86) 97 10/22/18 02:00 97 19 103/84 (90) 96 10/22/18 01:09 97 20 100 Bi-pap 30 10/22/18 01:00 99 14 128/69 (88) 95 10/22/18 00:58 99 14 95 Bi-pap 30 10/22/18 00:57 100 17 97 Facial 30 10/22/18 00:49 100 14 96 Nasal Cannula 3.0 10/22/18 00:00 97.4 101 18 119/76 (90) 97 10/22/18 00:00 30 10/22/18 00:00 Bi-pap 10/22/18 00:00 101 10/21/18 23:30 99 113/64 10/21/18 23:00 96 15 97 Facial 30 10/21/18 23:00 97 15 114/69 (84) 98 10/21/18 22:00 99 15 130/77 (94) 98 10/21/18 21:00 102 14 104/65 (78) 98 10/21/18 20:46 102 15 98 Facial 40 10/21/18 20:24 101 16 100 Bi-pap 40 10/21/18 20:18 103 15 94 Bi-pap 40 10/21/18 20:00 Bi-pap 10/21/18 20:00 40 10/21/18 20:00 102 10/21/18 20:00 97.4 100 12 114/79 (91) 96 10/21/18 19:33 103 15 Bi-pap 40 10/21/18 19:30 103 15 94 Facial 40 10/21/18 18:30 97.5 108 18 143/91 (108) 95 10/21/18 18:15 98.1 123 24 161/104 (123) 95 10/21/18 17:00 105 17 124/80 (95) 96 10/21/18 16:50 110 16 153/94 (113) 96 10/21/18 16:00 97.2 106 18 112/70 (84) 98 10/21/18 13:30 97.4 103 18 128/85 (99) 97 10/21/18 12:30 97.3 105 16 115/66 (82) 96 10/21/18 11:30 98.1 102 18 115/68 (84) 95 10/21/18 11:00 97.8 102 18 131/74 (93) 99 10/21/18 11:00 Nasal Cannula 3.0 10/21/18 10:47 97.8 98 13 123/75 98 Nasal Cannula 3 10/21/18 10:40 99 15 117/76 100 Nasal Cannula 3 10/21/18 10:25 93 15 129/72 100 Nasal Cannula 3 10/21/18 10:15 94 16 129/72 100 Nasal Cannula 3 10/21/18 10:04 96 16 121/78 100 Simple Mask 6 10/21/18 09:59 95 17 121/77 100 Simple Mask 6 10/21/18 09:54 97.5 94 16 121/75 99 Simple Mask 6 10/21/18 09:53 93 16 100 Status: awake Condition: improving HEENT: atraumatic, normocephalic Lungs: clear - but distant Heart: HR/BP stable Abdomen: soft, non-tender, active bowel sounds Extremities: no C/C/E, other - RLE dressed Blood Sugars: BS controlled Critical Care - Subjective ROS Limited/Unobtainable: Yes ICU Day: 2 Intubation Day: N/A Interval Events: AMS, pCO2 > 100, imp with Narcan Now in ICU on BIPAP, gas exchange better Awake and alert Denies cough or SOB no F/C + pain Condition: critical IV Access: peripheral EKG Rhythm: Sinus Rhythm FI02: 30 Sputum Amount: None Fluids: [id number] Drips: N/A I&O: Intake and Output 10/21/18 10/22/18 18:59 06:59 Intake Total 1555 ml 1172.5 ml Output Total 325 ml 555 ml Balance 1230 ml 617.5 ml Intake Oral 100 ml 180 ml IV Total 1455 ml 992.5 ml Output Urine Total 300 ml 355 ml Emesis 200 ml Estimated Blood Loss 25 ml Labs: Laboratory Tests Test 10/21/18 14:15 10/21/18 18:24 10/21/18 19:47 10/21/18 23:54 White Blood Count 13.6 K/UL (4.8-10.8) H Red Blood Count 4.25 M/UL (4.20-5.40) Hemoglobin 12.9 G/DL (12.0-16.0) Hematocrit 39.1 % (37.0-47.0) Mean Corpuscular Volume 92 FL (80-99) Mean Corpuscular Hemoglobin 30.4 PG (27.0-31.0) Mean Corpuscular Hemoglobin Concent 33.0 G/DL (32.0-36.0) Red Cell Distribution Width 11.5 % (11.6-14.8) L Platelet Count 278 K/UL (150-450) Mean Platelet Volume 6.9 FL (6.5-10.1) Neutrophils (%) (Auto) % (45.0-75.0) Lymphocytes (%) (Auto) % (20.0-45.0) Monocytes (%) (Auto) % (1.0-10.0) Eosinophils (%) (Auto) % (0.0-3.0) Basophils (%) (Auto) % (0.0-2.0) Differential Total Cells Counted 100 Neutrophils % (Manual) 92 % (45-75) H Lymphocytes % (Manual) 7 % (20-45) L Monocytes % (Manual) 1 % (1-10) Eosinophils % (Manual) 0 % (0-3) Basophils % (Manual) 0 % (0-2) Band Neutrophils 0 % (0-8) Platelet Estimate Adequate Platelet Morphology Normal Red Blood Cell Morphology Normal Sodium Level 137 MMOL/L (136-145) Potassium Level 4.8 MMOL/L (3.5-5.1) Chloride Level 101 MMOL/L (98-107) Carbon Dioxide Level 30 MMOL/L (21-32) Anion Gap 6 mmol/L (5-15) Blood Urea Nitrogen 13 mg/dL (7-18) Creatinine 0.9 MG/DL (0.55-1.30) Estimat Glomerular Filtration Rate > 60 mL/min (>60) Glucose Level 194 MG/DL (74-106) H Calcium Level 8.8 MG/DL (8.5-10.1) Arterial Blood pH 7.086 (7.350-7.450) 7.183 (7.350-7.450) 7.228 (7.350-7.450) Arterial Blood Partial Pressure CO2 104.8 mmHg (35.0-45.0) *H 79.1 mmHg (35.0-45.0) *H 70.7 mmHg (35.0-45.0) *H Arterial Blood Partial Pressure O2 95.2 mmHg (75.0-100.0) 88.5 mmHg (75.0-100.0) 90.3 mmHg (75.0-100.0) Arterial Blood HCO3 30.8 mmol/L (22.0-26.0) H 29.1 mmol/L (22.0-26.0) H 28.8 mmol/L (22.0-26.0) H Arterial Blood Oxygen Saturation 95.0 % (95-100) 95.1 % (95-100) 96.0 % (95-100) Arterial Blood Base Excess -2.2 (-2-2) L -1.2 (-2-2) -0.4 (-2-2) Blair Test Positive Positive Positive Test 10/22/18 04:35 10/22/18 06:52 White Blood Count 17.9 K/UL (4.8-10.8) H Red Blood Count 3.78 M/UL (4.20-5.40) L Hemoglobin 11.4 G/DL (12.0-16.0) L Hematocrit 35.2 % (37.0-47.0) L Mean Corpuscular Volume 93 FL (80-99) Mean Corpuscular Hemoglobin 30.2 PG (27.0-31.0) Mean Corpuscular Hemoglobin Concent 32.4 G/DL (32.0-36.0) Red Cell Distribution Width 11.6 % (11.6-14.8) Platelet Count 251 K/UL (150-450) Mean Platelet Volume 7.2 FL (6.5-10.1) Neutrophils (%) (Auto) % (45.0-75.0) Lymphocytes (%) (Auto) % (20.0-45.0) Monocytes (%) (Auto) % (1.0-10.0) Eosinophils (%) (Auto) % (0.0-3.0) Basophils (%) (Auto) % (0.0-2.0) Differential Total Cells Counted 100 Neutrophils % (Manual) 86 % (45-75) H Lymphocytes % (Manual) 5 % (20-45) L Monocytes % (Manual) 9 % (1-10) Eosinophils % (Manual) 0 % (0-3) Basophils % (Manual) 0 % (0-2) Band Neutrophils 0 % (0-8) Platelet Estimate Adequate Platelet Morphology Normal Hypochromasia 1+ Sodium Level 137 MMOL/L (136-145) Potassium Level 5.0 MMOL/L (3.5-5.1) Chloride Level 100 MMOL/L (98-107) Carbon Dioxide Level 31 MMOL/L (21-32) Anion Gap 6 mmol/L (5-15) Blood Urea Nitrogen 15 mg/dL (7-18) Creatinine 0.9 MG/DL (0.55-1.30) Estimat Glomerular Filtration Rate > 60 mL/min (>60) Glucose Level 172 MG/DL (74-106) H Calcium Level 8.4 MG/DL (8.5-10.1) L Arterial Blood pH 7.321 (7.350-7.450) Arterial Blood Partial Pressure CO2 60.9 mmHg (35.0-45.0) *H Arterial Blood Partial Pressure O2 75.7 mmHg (75.0-100.0) Arterial Blood HCO3 30.7 mmol/L (22.0-26.0) H Arterial Blood Oxygen Saturation 94.9 % (95-100) L Arterial Blood Base Excess 3.3 (-2-2) H Blair Test Positive Stiven Holguin MD Oct 22, 2018 08:59
[2018-10-22] MEDS ORDERED: Albuterol/Ipratropium 3ml neb HHN PRN (09:00)
[2018-10-22] MEDS ORDERED: Losartan 50mg tab ORAL SCH (09:00)
[2018-10-22] MEDS: Advair 250/50 Inhaler - 14 dose INH SCH ×2 (09:11→19:03)
[2018-10-22] MEDS: Docusate 100mg cap ORAL SCH ×3 (09:36→18:00)
[2018-10-22] MEDS: celeBREX 200mg Cap **SURGERY PATIENTS ONLY ORAL SCH (09:36)
[2018-10-22] MEDS: Enoxaparin 30mg Inj SUBQ SCH ×2 (09:38→20:52)
--- NOTE | 2018-10-22 10:21 | Diagnostic Imaging Report ---
Indication: Shortness of breath Technique: One view of the chest Comparison: none Findings: The left hemidiaphragm is markedly elevated. The lungs and pleural spaces are clear otherwise. The heart is probably enlarged Impression: Cardiomegaly No definite acute process
[2018-10-22] MEDS: Albuterol/Ipratropium 3ml neb HHN SCH ×2 (12:38→19:03)
--- NOTE | 2018-10-22 12:41 | 48 Hour Post Anesthesia Eval ---
Post Anesthesia Evaluation Procedure: R Knee Total Arthroplasty Date of Evaluation: Oct 22, 2018 Time of Evaluation: 12:39 Blood Pressure Systolic: 148 0: 72 Pulse Rate: 86 Respiratory Rate: 24 Temperature (Fahrenheit): 97.8 O2 Sat by Pulse Oximetry: 97 Airway: patent Nausea: No Vomiting: No Pain Intensity: 3 Hydration Status: adequate Cardiopulmonary Status: Mild dyspnea, O2 saturation normal on bi pap mask Mental Status/LOC: patient returned to baseline Follow-up Care/Observations: n/a Post-Anesthesia Complications: none Follow-up care needed: N/A Sylvain Lozano MD Oct 22, 2018 12:41
--- NOTE | 2018-10-22 17:00 | Cardiology Report ---
APPROVED REPORT EXAM: Two-dimensional and M-mode echocardiogram with Doppler and color Doppler. INDICATION Congestive Heart Failure M-Mode DIMENSIONS IVSd1.3 (0.7-1.1cm)Left Atrium (MM)3.5 (1.6-4.0cm) LVDd4.3 (3.5-5.6cm)Aortic Root2.3 (2.0-3.7cm) PWd0.8 (0.7-1.1cm)Aortic Cusp Exc.2.0 (1.5-2.0cm) LVDs2.8 (2.5-4.0cm) PWs1.5 cm Technically difficult study due to poor acoustic windows and patient on ventilator. Study quality precludes accurate assessment of regional wall motion. Normal left ventricular chamber size, systolic function and wall motion to extent visualized. Left ventricular ejection fraction estimated to be grossly normal. Mild left ventricular hypertrophy. Anterior Echo-free space, may be due to pericardial fat or effusion. All other cardiac chamber size appear to be within normal limits. Mild focal aortic valve sclerosis with adequate cusp excursion. Mildly thickened mitral valve leaflets with normal excursion. Mild mitral annulus and aortic root calcification. Normal pulmonic valve structure. Normal tricuspid valve structure. IVC dilated at 2.0 cm without physiological collapse, suggestive of increased RA pressure. A color flow and spectral Doppler study was performed and revealed: No aortic insufficiency. No mitral regurgitation. Left ventricular diastolic function could not be determined due to arrhythmia. Mild tricuspid regurgitation. Tricuspid systolic velocities suggests peak right ventricular systolic pressure of 41 mmHg, consistent with mild pulmonary hypertension. No pulmonic regurgitation present.
--- NOTE | 2018-10-22 21:21 | General Progress Note ---
Assessment/Plan Assessment/Plan resp insiffucuncy copd with co2 retention s./p TKR periuoperative bloodloss hypertenison plan duoneb bipap prn monitor co2 rosita has had elevated co2 perioperative natibiotc prophyalxis gieven postop dvt prophyalxis paincontrol PT OT CPM PER ORTHO DISCUSSED WITHNURSING STAFF Subjective Date patient seen: Oct 22, 2018 Time patient seen: 21:17 Allergies: Coded Allergies: No Known Allergies (Unverified , 10/14/18) Subjective has pain no fever no chest pain Objective Last 24 Hour Vital Signs Date Time Temp Pulse Resp B/P (MAP) Pulse Ox O2 Delivery O2 Flow Rate FiO2 10/22/18 20:00 98.6 102 22 122/66 (84) 98 10/22/18 20:00 30 10/22/18 19:59 97.8 10/22/18 19:41 100 18 98 Facial 30 10/22/18 19:13 96 17 99 Nasal Cannula 2.0 28 10/22/18 19:12 96 17 99 Nasal Cannula 2.0 28 10/22/18 19:06 100 24 96 Nasal Cannula 2.0 28 10/22/18 19:04 100 21 96 Nasal Cannula 2.0 28 10/22/18 19:00 90 25 123/69 (87) 96 10/22/18 18:00 95 25 119/62 (81) 96 10/22/18 18:00 93 122/59 10/22/18 17:00 93 25 122/59 (80) 96 10/22/18 16:00 30 10/22/18 16:00 97 25 127/60 (82) 96 10/22/18 16:00 Bi-pap 10/22/18 16:00 92 10/22/18 15:00 99 25 134/69 (90) 96 10/22/18 14:44 105 22 97 Facial 33 10/22/18 14:00 100 25 139/71 (93) 96 10/22/18 13:00 100 25 133/66 (88) 96 10/22/18 12:53 111 14 98 Bi-pap 30 10/22/18 12:41 106 15 98 Bi-pap 30 10/22/18 12:41 86 24 97 10/22/18 12:39 105 22 97 Facial 30 11/21/18 12:21 106 147/69 10/22/18 12:00 95 10/22/18 12:00 Bi-pap 10/22/18 12:00 98.0 99 16 120/75 (90) 97 10/22/18 12:00 30 10/22/18 11:05 106 26 98 Facial 30 10/22/18 11:00 95 25 129/65 (86) 96 10/22/18 10:08 97.5 10/22/18 10:00 100 25 147/69 (95) 96 10/22/18 09:23 106 22 99 Bi-pap 30 10/22/18 09:23 106 24 99 Bi-pap 30 10/22/18 09:22 105 20 99 Bi-pap 30 10/22/18 09:21 105 20 99 Bi-pap 30 10/22/18 09:17 104 17 99 Facial 30 10/22/18 09:00 98 22 130/61 (84) 97 10/22/18 08:20 99 10/22/18 08:00 30 10/22/18 08:00 Bi-pap 10/22/18 08:00 97.5 99 16 119/75 (90) 97 10/22/18 07:13 101 25 100 Bi-pap 30 10/22/18 07:02 105 20 99 Bi-pap 30 10/22/18 07:00 100 25 122/61 (81) 93 10/22/18 06:48 104 25 99 Facial 30 10/22/18 06:00 107 25 127/60 (82) 93 18 05:48 102 128/60 10/22/18 05:18 97 18 98 Facial 30 10/22/18 05:00 96 21 128/60 (82) 98 10/22/18 04:00 97.5 96 16 103/76 (85) 97 10/22/18 04:00 96 10/22/18 04:00 30 10/22/18 04:00 Bi-pap 10/22/18 03:24 94 19 97 Facial 30 10/22/18 03:00 97 20 120/69 (86) 97 10/22/18 02:00 97 19 103/84 (90) 96 10/22/18 01:09 97 20 100 Bi-pap 30 10/22/18 01:00 99 14 128/69 (88) 95 10/22/18 00:58 99 14 95 Bi-pap 30 10/22/18 00:57 100 17 97 Facial 30 10/22/18 00:49 100 14 96 Nasal Cannula 3.0 10/22/18 00:00 97.4 101 18 119/76 (90) 97 10/22/18 00:00 30 10/22/18 00:00 Bi-pap 10/22/18 00:00 101 10/21/18 23:30 99 113/64 10/21/18 23:00 96 15 97 Facial 30 10/21/18 23:00 97 15 114/69 (84) 98 10/21/18 22:00 99 15 130/77 (94) 98 Intake and Output 10/21/18 10/22/18 19:00 07:00 Intake Total 1630 ml 1097.5 ml Output Total 325 ml 585 ml Balance 1305 ml 512.5 ml Intake Oral 100 ml 180 ml IV Total 1530 ml 917.5 ml Output Urine Total 300 ml 385 ml Emesis 200 ml Estimated Blood Loss 25 ml Laboratory Tests 10/21/18 23:54: Arterial Blood pH 7.228*L, Arterial Blood Partial Pressure CO2 70.7*H, Arterial Blood Partial Pressure O2 90.3, Arterial Blood HCO3 28.8H, Arterial Blood Oxygen Saturation 96.0, Arterial Blood Base Excess -0.4, Blair Test Positive 10/22/18 04:35: White Blood Count 17.9H, Red Blood Count 3.78L, Hemoglobin 11.4L, Hematocrit 35.2L, Mean Corpuscular Volume 93, Mean Corpuscular Hemoglobin 30.2, Mean Corpuscular Hemoglobin Concent 32.4, Red Cell Distribution Width 11.6, Platelet Count 251, Mean Platelet Volume 7.2, Neutrophils (%) (Auto) , Lymphocytes (%) ( Auto) , Monocytes (%) (Auto) , Eosinophils (%) (Auto) , Basophils (%) (Auto) , Differential Total Cells Counted 100, Neutrophils % (Manual) 86H, Lymphocytes % (Manual) 5L, Monocytes % (Manual) 9, Eosinophils % (Manual) 0, Basophils % ( Manual) 0, Band Neutrophils 0, Platelet Estimate Adequate, Platelet Morphology Normal, Hypochromasia 1+, Sodium Level 137, Potassium Level 5.0, Chloride Level 100, Carbon Dioxide Level 31, Anion Gap 6, Blood Urea Nitrogen 15, Creatinine 0.9, Estimat Glomerular Filtration Rate > 60, Glucose Level 172H, Calcium Level 8.4L 10/22/18 06:52: Arterial Blood pH 7.321L, Arterial Blood Partial Pressure CO2 60.9*H, Arterial Blood Partial Pressure O2 75.7, Arterial Blood HCO3 30.7H, Arterial Blood Oxygen Saturation 94.9L, Arterial Blood Base Excess 3.3H, Blair Test Positive 10/22/18 17:42: Arterial Blood pH 7.381, Arterial Blood Partial Pressure CO2 49.9H, Arterial Blood Partial Pressure O2 70.7L, Arterial Blood HCO3 28.9H, Arterial Blood Oxygen Saturation 94.0L, Arterial Blood Base Excess 3.1H, Blair Test Positive Height (Feet): 4 Height (Inches): 11.00 Weight (Pounds): 138 Objective nad wearing bipap no jvd 's1s2,rrr distant breath soud soft Matthew Helms MD Oct 22, 2018 21:21
[2018-10-23] VITALS (17 sets, daily range): BP systolic 119–141; BP diastolic 57–80
[2018-10-23] MEDS: dilTIAZem HCl 60mg tab ORAL SCH ×5 (00:41→23:25)
[2018-10-23] MEDS: Albuterol/Ipratropium 3ml neb HHN SCH ×4 (01:25→19:46)
[2018-10-23 04:56] LABS: BASOPHILS % (AUTO) 0.2 % (0.0-2.0); HEMATOCRIT 29.9 % (37.0-47.0); LYMPHOCYTES % (AUTO) 6.5 % (20.0-45.0); MEAN CORPUSCULAR VOLUME 91 FL (80-99); MONOCYTES % (AUTO) 8.6 % (1.0-10.0); NEUTROPHILS % (AUTO) 84.7 % (45.0-75.0); PLATELET COUNT 199 K/UL (150-450); RED BLOOD COUNT 3.28 M/UL (4.20-5.40); RED CELL DISTRIBUTION WIDTH 11.1 % (11.6-14.8); WHITE BLOOD COUNT 15.1 K/UL (4.8-10.8)
[2018-10-23 05:27] LABS: ANION GAP 7 mmol/L (5-15); BLOOD UREA NITROGEN 9 mg/dL (7-18); CALCIUM 8.6 MG/DL (8.5-10.1); CARBON DIOXIDE 30 MMOL/L (21-32); CHLORIDE 99 MMOL/L (98-107); CREATININE 0.7 MG/DL (0.55-1.30); POTASSIUM 4.2 MMOL/L (3.5-5.1); SODIUM 136 MMOL/L (136-145)
[2018-10-23] MEDS: D5 1/2NS w/KCl 20mEq 1,000 ML IV SCH ×2 (06:01→18:38)
--- NOTE | 2018-10-23 07:35 | Orthopedic Progress Note ---
Orthopedic - Progress Note Subjective Symptoms: c/o post-op knee pain Objective Last 24 Hour Vital Signs Date Time Temp Pulse Resp B/P (MAP) Pulse Ox O2 Delivery O2 Flow Rate FiO2 10/23/18 07:11 97 Nasal Cannula 2.0 10/23/18 07:11 Nasal Cannula 2.0 10/23/18 07:09 106 20 97 Nasal Cannula 2.0 28 10/23/18 07:00 108 22 126/68 (87) 98 10/23/18 06:00 98.3 113 22 137/57 (83) 98 10/23/18 05:00 114 22 139/58 (85) 98 10/23/18 05:00 112 141/64 10/23/18 04:00 112 10/23/18 04:00 98.4 111 22 141/64 (89) 98 10/23/18 04:00 2.0 10/23/18 04:00 Bi-pap 10/23/18 03:00 114 22 131/63 (85) 96 10/23/18 02:23 98.6 10/23/18 02:00 108 22 132/61 (84) 96 10/23/18 01:36 108 20 100 Nasal Cannula 2.0 28 10/23/18 01:23 109 24 97 Nasal Cannula 2.0 28 10/23/18 01:00 105 22 121/59 (79) 96 10/23/18 00:41 105 119/58 10/23/18 00:00 2.0 10/23/18 00:00 Bi-pap 10/23/18 00:00 106 10/23/18 00:00 98.6 105 22 119/59 (79) 98 10/22/18 23:00 105 22 120/58 (78) 96 10/22/18 22:00 104 22 129/64 (85) 95 10/22/18 21:25 98.6 10/22/18 21:00 103 20 123/58 (79) 98 10/22/18 20:00 98.6 102 22 122/66 (84) 98 10/22/18 20:00 30 10/22/18 20:00 Bi-pap 10/22/18 20:00 102 10/22/18 19:41 100 18 98 Facial 30 10/22/18 19:13 96 17 99 Nasal Cannula 2.0 28 10/22/18 19:12 96 17 99 Nasal Cannula 2.0 28 10/22/18 19:06 100 24 96 Nasal Cannula 2.0 28 10/22/18 19:04 100 21 96 Nasal Cannula 2.0 28 10/22/18 19:00 90 25 123/69 (87) 96 10/22/18 18:00 95 25 119/62 (81) 96 18 18:00 93 122/59 10/22/18 17:00 93 25 122/59 (80) 96 10/22/18 16:00 30 10/22/18 16:00 97 25 127/60 (82) 96 10/22/18 16:00 Bi-pap 10/22/18 16:00 92 10/22/18 15:00 99 25 134/69 (90) 96 10/22/18 14:44 105 22 97 Facial 33 10/22/18 14:00 100 25 139/71 (93) 96 10/22/18 13:00 100 25 133/66 (88) 96 10/22/18 12:53 111 14 98 Bi-pap 30 10/22/18 12:41 106 15 98 Bi-pap 30 10/22/18 12:41 86 24 97 10/22/18 12:39 105 22 97 Facial 30 10/22/18 12:21 106 147/69 10/22/18 12:00 95 10/22/18 12:00 Bi-pap 10/22/18 12:00 98.0 99 16 120/75 (90) 97 10/22/18 12:00 30 10/22/18 11:05 106 26 98 Facial 30 10/22/18 11:00 95 25 129/65 (86) 96 10/22/18 10:00 100 25 147/69 (95) 96 10/22/18 09:23 106 22 99 Bi-pap 30 10/22/18 09:23 106 24 99 Bi-pap 30 10/22/18 09:22 105 20 99 Bi-pap 30 10/22/18 09:21 105 20 99 Bi-pap 30 10/22/18 09:17 104 17 99 Facial 30 10/22/18 09:00 98 22 130/61 (84) 97 10/22/18 08:20 99 10/22/18 08:00 30 11/21/18 08:00 Bi-pap 10/22/18 08:00 97.5 99 16 119/75 (90) 97 Intake and Output 10/22/18 10/23/18 19:00 07:00 Intake Total 675 ml 900 ml Output Total 360 ml 1110 ml Balance 315 ml -210 ml IV Total 675 ml 900 ml Output Urine Total 360 ml 1110 ml Laboratory Tests Test 10/22/18 17:42 10/23/18 03:40 Arterial Blood pH 7.381 (7.350-7.450) Arterial Blood Partial Pressure CO2 49.9 mmHg (35.0-45.0) H Arterial Blood Partial Pressure O2 70.7 mmHg (75.0-100.0) L Arterial Blood HCO3 28.9 mmol/L (22.0-26.0) H Arterial Blood Oxygen Saturation 94.0 % (95-100) L Arterial Blood Base Excess 3.1 (-2-2) H Blair Test Positive White Blood Count 15.1 K/UL (4.8-10.8) H Red Blood Count 3.28 M/UL (4.20-5.40) L Hemoglobin 10.0 G/DL (12.0-16.0) L Hematocrit 29.9 % (37.0-47.0) L Mean Corpuscular Volume 91 FL (80-99) Mean Corpuscular Hemoglobin 30.5 PG (27.0-31.0) Mean Corpuscular Hemoglobin Concent 33.4 G/DL (32.0-36.0) Red Cell Distribution Width 11.1 % (11.6-14.8) L Platelet Count 199 K/UL (150-450) Mean Platelet Volume 7.8 FL (6.5-10.1) Neutrophils (%) (Auto) 84.7 % (45.0-75.0) H Lymphocytes (%) (Auto) 6.5 % (20.0-45.0) L Monocytes (%) (Auto) 8.6 % (1.0-10.0) Eosinophils (%) (Auto) 0.0 % (0.0-3.0) Basophils (%) (Auto) 0.2 % (0.0-2.0) Sodium Level 136 MMOL/L (136-145) Potassium Level 4.2 MMOL/L (3.5-5.1) Chloride Level 99 MMOL/L (98-107) Carbon Dioxide Level 30 MMOL/L (21-32) Anion Gap 7 mmol/L (5-15) Blood Urea Nitrogen 9 mg/dL (7-18) Creatinine 0.7 MG/DL (0.55-1.30) Estimat Glomerular Filtration Rate > 60 mL/min (>60) Glucose Level 121 MG/DL (74-106) H Calcium Level 8.6 MG/DL (8.5-10.1) Wound: clean, dry Drains: none Neuro Status: normal Vascular Status: normal Assessment Post-op Diagnosis S/P R TKA, POD#2 Doing better with her pulmonary function on room air. Transfer to if ok with Dr. Helms and Dr. Quezada. Dressing change. PT as soon as possible. Discharge planning to SNF on Saturday or Saturday. Duran Roman MD Oct 23, 2018 07:35
[2018-10-23] MEDS: Advair 250/50 Inhaler - 14 dose INH SCH ×2 (08:22→18:00)
[2018-10-23] MEDS: Docusate 100mg cap ORAL SCH ×3 (09:00→17:50)
[2018-10-23] MEDS: celeBREX 200mg Cap **SURGERY PATIENTS ONLY ORAL SCH (09:00)
[2018-10-23] MEDS: Enoxaparin 30mg Inj SUBQ SCH ×2 (09:00→20:40)
[2018-10-23] MEDS ORDERED: Milk of Magnesia 30ml Ud ORAL PRN (18:00)
[2018-10-23] MEDS ORDERED: Albuterol/Ipratropium 3ml neb HHN PRN (18:00)
--- NOTE | 2018-10-23 19:59 | Pulmonology Progress Note ---
Assessment/Plan Assessment/Plan ASSESSMENT: Acute on chronic hypercapnic and hypoxemic respiratory failure DDD S/P R TKA (10/21 Dr. Roman) COPD on/off home O2 Former smoker HTN PLAN: bipap qhs and prn distress Optimize pulmonary hygiene/mobilize as tolerated Titrate down FiO2 to keep SaO2 > 90% Advair & Spiriva (auto sub for Stiolto) RTC and PRN DUOneb HHN's IS Post-op care per ortho Pain control/supportive care --> AVOID NARCOTICS/SEDATIVES DVT Px: LMWH dc foely in am and dc to rehab in am Subjective Allergies: Coded Allergies: No Known Allergies (Unverified , 10/14/18) Subjective still with pain no cp nv or bleeding tolerating some po not doing much with pt remains on o2 Objective Last 24 Hour Vital Signs Date Time Temp Pulse Resp B/P (MAP) Pulse Ox O2 Delivery O2 Flow Rate FiO2 10/23/18 19:49 101 20 99 Nasal Cannula 2.0 28 10/23/18 19:47 Nasal Cannula 2.0 28 10/23/18 19:47 98 Nasal Cannula 2.0 28 10/23/18 19:39 94 20 96 Nasal Cannula 2.0 28 10/23/18 17:51 114 129/79 10/23/18 15:00 110 18 128/80 (96) 99 10/23/18 14:00 98.4 115 22 130/68 (88) 98 10/23/18 13:49 113 23 100 Nasal Cannula 2.0 28 10/23/18 13:36 111 22 97 Nasal Cannula 2.0 28 10/23/18 13:00 111 20 137/77 (97) 98 10/23/18 12:00 110 10/23/18 12:00 110 20 135/74 (94) 98 10/23/18 12:00 Nasal Cannula 3.0 10/23/18 12:00 111 133/77 10/23/18 12:00 2.0 10/23/18 11:00 108 20 133/77 (95) 98 10/23/18 10:00 98.7 108 22 133/60 (84) 98 10/23/18 09:00 102 22 128/66 (86) 98 10/23/18 08:33 102 17 99 Nasal Cannula 2.0 28 10/23/18 08:23 102 17 98 Nasal Cannula 2.0 28 10/23/18 08:23 102 17 99 Nasal Cannula 2.0 28 10/23/18 08:22 105 17 95 Nasal Cannula 2.0 28 10/23/18 08:00 2.0 10/23/18 08:00 108 10/23/18 08:00 Nasal Cannula 3.0 10/23/18 08:00 107 22 122/65 (84) 98 10/23/18 07:19 107 24 99 Nasal Cannula 2.0 28 10/23/18 07:11 97 Nasal Cannula 2.0 10/23/18 07:11 Nasal Cannula 2.0 10/23/18 07:09 106 20 97 Nasal Cannula 2.0 28 10/23/18 07:00 108 22 126/68 (87) 98 10/23/18 06:00 98.3 113 22 137/57 (83) 98 10/23/18 05:00 114 22 139/58 (85) 98 10/23/18 05:00 112 141/64 10/23/18 04:00 112 10/23/18 04:00 98.4 111 22 141/64 (89) 98 10/23/18 04:00 2.0 10/23/18 04:00 Bi-pap 10/23/18 03:00 114 22 131/63 (85) 96 10/23/18 02:23 98.6 10/23/18 02:00 108 22 132/61 (84) 96 10/23/18 01:36 108 20 100 Nasal Cannula 2.0 28 10/23/18 01:23 109 24 97 Nasal Cannula 2.0 28 10/23/18 01:00 105 22 121/59 (79) 96 10/23/18 00:41 105 119/58 10/23/18 00:00 2.0 10/23/18 00:00 Bi-pap 10/23/18 00:00 106 10/23/18 00:00 98.6 105 22 119/59 (79) 98 10/22/18 23:00 105 22 120/58 (78) 96 10/22/18 22:00 104 22 129/64 (85) 95 10/22/18 21:25 98.6 10/22/18 21:00 103 20 123/58 (79) 98 10/22/18 20:00 98.6 102 22 122/66 (84) 98 10/22/18 20:00 30 10/22/18 20:00 Bi-pap 10/22/18 20:00 102 Intake and Output 10/22/18 10/23/18 19:00 07:00 Intake Total 675 ml 900 ml Output Total 360 ml 1110 ml Balance 315 ml -210 ml IV Total 675 ml 900 ml Output Urine Total 360 ml 1110 ml General Appearance: WD/WN Respiratory/Chest: lungs clear Cardiovascular: normal rate, regularly irregular Abdomen: soft, non tender, no organomegaly Extremities: no cyanosis Neurologic/Psychiatric: abnormal gait, alert, oriented x 3 Microbiology Date/Time Source Procedure Growth Status 10/21/18 05:30 Nasal Nares MRSA Culture - Final NO METHICILLIN RESISTANT STAPH AUREUS... Complete Laboratory Tests 10/23/18 03:40: White Blood Count 15.1H, Red Blood Count 3.28L, Hemoglobin 10.0L, Hematocrit 29.9L, Mean Corpuscular Volume 91, Mean Corpuscular Hemoglobin 30.5, Mean Corpuscular Hemoglobin Concent 33.4, Red Cell Distribution Width 11.1L, Platelet Count 199, Mean Platelet Volume 7.8, Neutrophils (%) (Auto) 84.7H, Lymphocytes (%) (Auto) 6.5L, Monocytes (%) (Auto) 8.6, Eosinophils (%) (Auto) 0.0, Basophils (%) (Auto) 0.2, Sodium Level 136, Potassium Level 4.2, Chloride Level 99, Carbon Dioxide Level 30, Anion Gap 7, Blood Urea Nitrogen 9, Creatinine 0.7, Estimat Glomerular Filtration Rate > 60, Glucose Level 121H, Calcium Level 8.6 Current Medications Medications (Trade) Dose Ordered Sig/Singh Route PRN Reason Start Time Stop Time Status Last Admin Dose Admin Acetaminophen (Tylenol) 650 mg Q4H PRN ORAL temp>100.2 or headache 10/23/18 18:00 11/20/18 17:59 10/23/18 17:49 Albuterol/ Ipratropium (Albuterol/ Ipratropium) 3 ml Q4H PRN HHN Shortness of Breath 10/23/18 18:00 10/27/18 17:59 Albuterol/ Ipratropium (Albuterol/ Ipratropium) 3 ml Q6HRT HHN 10/23/18 19:00 10/27/18 12:59 10/23/18 19:46 Celecoxib (CeleBREX) 200 mg DAILY ORAL 10/24/18 09:00 11/20/18 08:59 Dextrose/ Electrolytes 1,000 ml @ 75 mls/hr [id number] IV 10/23/18 17:15 11/20/18 12:59 10/23/18 18:38 Diltiazem HCl (Cardizem) 60 mg EVERY 6 HOURS ORAL 10/23/18 18:00 11/21/18 00:00 10/23/18 17:51 Docusate Sodium (Colace) 100 mg THREE TIMES A DAY ORAL 10/23/18 18:00 11/20/18 12:59 10/23/18 17:50 Enoxaparin Sodium (Lovenox) 30 mg EVERY 12 HOURS SUBQ 10/23/18 21:00 11/20/18 15:59 Ferrous Sulfate (Feosol) 325 mg THREE TIMES A DAY ORAL 10/23/18 18:00 11/20/18 12:59 10/23/18 17:50 Magnesium Hydroxide (Mom) 30 ml DAILYPRN PRN ORAL Constipation 10/23/18 18:00 11/22/18 17:59 Ondansetron HCl (Zofran) 4 mg Q6H PRN IVP Nausea & Vomiting 10/23/18 18:00 11/20/18 11:59 Salmeterol Xinafoate/ Fluticasone (Advair 250/50 Diskus) 1 puffs BID INH 10/23/18 18:00 11/20/18 17:59 Tiotropium [place] (Spiriva Inhaler) 1 puff DAILY INH 10/24/18 09:00 11/21/18 08:59 Tramadol HCl (Ultram) 50 mg Q4H PRN ORAL PAIN 4-10 10/23/18 18:00 10/28/18 17:59 Lorena Forde DO Oct 23, 2018 19:59
[2018-10-23] MEDS: traMADol 50mg tab ORAL PRN (21:18)
[2018-10-24] VITALS: BP 122/63
[2018-10-24] MEDS: Albuterol/Ipratropium 3ml neb HHN SCH ×4 (02:26→19:53)
[2018-10-24 04:00] VITALS: BP 126/63
[2018-10-24] MEDS: dilTIAZem HCl 60mg tab ORAL SCH ×3 (05:28→18:00)
[2018-10-24] MEDS: traMADol 50mg tab ORAL PRN ×4 (05:46→21:14)
[2018-10-24 05:52] LABS: BASOPHILS % (AUTO) 0.3 % (0.0-2.0); EOSINOPHILS % (AUTO) 0.2 % (0.0-3.0); HEMATOCRIT 29.1 % (37.0-47.0); HEMOGLOBIN 9.7 G/DL (12.0-16.0); LYMPHOCYTES % (AUTO) 9.8 % (20.0-45.0); MEAN CORPUSCULAR VOLUME 92 FL (80-99); NEUTROPHILS % (AUTO) 81.8 % (45.0-75.0); PLATELET COUNT 197 K/UL (150-450); RED BLOOD COUNT 3.17 M/UL (4.20-5.40); RED CELL DISTRIBUTION WIDTH 11.5 % (11.6-14.8); WHITE BLOOD COUNT 11.7 K/UL (4.8-10.8)
[2018-10-24] MEDS: D5 1/2NS w/KCl 20mEq 1,000 ML IV SCH ×2 (06:02→20:59)
[2018-10-24 06:04] LABS: ANION GAP 4 mmol/L (5-15); BLOOD UREA NITROGEN 5 mg/dL (7-18); CALCIUM 8.7 MG/DL (8.5-10.1); CARBON DIOXIDE 36 MMOL/L (21-32); CHLORIDE 100 MMOL/L (98-107); CREATININE 0.6 MG/DL (0.55-1.30); POTASSIUM 4.2 MMOL/L (3.5-5.1); SODIUM 140 MMOL/L (136-145)
[2018-10-24 08:12] VITALS: BP 132/71
[2018-10-24] MEDS: Docusate 100mg cap ORAL SCH ×3 (09:12→17:32)
[2018-10-24] MEDS: celeBREX 200mg Cap **SURGERY PATIENTS ONLY ORAL SCH (09:12)
[2018-10-24] MEDS: Enoxaparin 30mg Inj SUBQ SCH ×2 (09:14→21:10)
[2018-10-24] MEDS: Advair 250/50 Inhaler - 14 dose INH SCH ×2 (10:01→19:53)
[2018-10-24] MEDS ORDERED: NS 275ml ONE (10:37)
[2018-10-24 12:00] VITALS: BP 132/71
--- NOTE | 2018-10-24 14:49 | General Progress Note ---
Assessment/Plan Assessment/Plan s/p tkr severre copd follow labs monitior closely PT OT CPM PER ORTHO DISCUSSED WITH NURSING STAFF Subjective Date patient seen: Oct 24, 2018 Time patient seen: 14:47 Allergies: Coded Allergies: No Known Allergies (Unverified , 10/14/18) Subjective has pain has some sob no fever Objective Last 24 Hour Vital Signs Date Time Temp Pulse Resp B/P (MAP) Pulse Ox O2 Delivery O2 Flow Rate FiO2 10/24/18 12:36 95 18 99 Nasal Cannula 2.0 28 10/24/18 12:23 93 18 96 Nasal Cannula 2.0 28 10/24/18 12:23 28 10/24/18 12:09 96 131/72 10/24/18 12:00 98.3 98 21 132/71 (91) 95 10/24/18 10:20 99 18 98 Nasal Cannula 2.0 28 10/24/18 10:12 90 16 99 Nasal Cannula 2.0 28 10/24/18 10:08 103 16 96 Nasal Cannula 2.0 28 10/24/18 10:08 103 16 96 Nasal Cannula 2.0 28 10/24/18 09:00 Nasal Cannula 4.0 Nasal Cannula 4.0 10/24/18 08:20 90 18 98 Nasal Cannula 2.0 28 10/24/18 08:14 98 Nasal Cannula 2.0 28 10/24/18 08:14 Nasal Cannula 2.0 28 10/24/18 08:12 98.5 98 23 132/71 (91) 95 10/24/18 08:11 89 18 98 Nasal Cannula 2.0 28 10/24/18 08:11 28 10/24/18 05:30 94 2.0 28 10/24/18 05:28 104 126/63 10/24/18 04:00 97.8 104 20 126/63 (84) 96 10/24/18 02:28 88 17 99 Facial 30 10/24/18 01:40 88 20 98 Nasal Cannula 2.0 28 10/24/18 01:30 85 20 97 Nasal Cannula 2.0 28 10/24/18 00:00 98.6 98 17 122/63 (82) 94 10/23/18 23:25 98 122/63 10/23/18 21:00 Nasal Cannula 3.0 10/23/18 20:00 97.6 97 18 136/65 (88) 95 10/23/18 20:00 Nasal Cannula 2.0 28 10/23/18 20:00 Nasal Cannula 2.0 10/23/18 19:49 101 20 99 Nasal Cannula 2.0 10/23/18 19:47 Nasal Cannula 2.0 10/23/18 19:47 98 Nasal Cannula 2.0 10/23/18 19:39 94 20 96 Nasal Cannula 2.0 10/23/18 17:51 114 129/79 10/23/18 15:00 110 18 128/80 (96) 99 Intake and Output 10/23/18 10/24/18 19:00 07:00 Intake Total 75 ml 945 ml Output Total 460 ml 1300 ml Balance -385 ml -355 ml Intake Oral 120 ml IV Total 75 ml 825 ml Output Urine Total 460 ml 1300 ml Laboratory Tests 10/24/18 05:17: White Blood Count 11.7H, Red Blood Count 3.17L, Hemoglobin 9.7L, Hematocrit 29.1L, Mean Corpuscular Volume 92, Mean Corpuscular Hemoglobin 30.6, Mean Corpuscular Hemoglobin Concent 33.3, Red Cell Distribution Width 11.5L, Platelet Count 197, Mean Platelet Volume 7.6, Neutrophils (%) (Auto) 81.8H, Lymphocytes (%) (Auto) 9.8L, Monocytes (%) (Auto) 8.0, Eosinophils (%) (Auto) 0.2, Basophils (%) (Auto) 0.3, Sodium Level 140, Potassium Level 4.2, Chloride Level 100, Carbon Dioxide Level 36H, Anion Gap 4L, Blood Urea Nitrogen 5L, Creatinine 0.6, Estimat Glomerular Filtration Rate > 60, Glucose Level 122H, Calcium Level 8.7 Height (Feet): 4 Height (Inches): 11.00 Weight (Pounds): 138 General Appearance: WD/WN EENT: PERRL/EOMI Neck: other - no jvd Cardiovascular: normal rate, regular rhythm Respiratory/Chest: other - dostnat breat sounmd Abdomen: non tender, soft Extremities: other - no edmea Objective nad wearing bipap no jvd 's1s2,rrr distant breath soud soft Matthew Helms MD Oct 24, 2018 14:49
[2018-10-24] MEDS ORDERED: NS 500ML ONE (14:54)
[2018-10-24 16:00] VITALS: BP 141/68
--- NOTE | 2018-10-24 16:47 | Orthopedic Progress Note ---
Orthopedic - Progress Note Subjective Symptoms: other - did well walking with PT today. using walker, progressing slowly with CPM. had de-sat/hypertensive epsiode earlier Objective Laboratory Tests Test 10/24/18 05:17 White Blood Count 11.7 K/UL (4.8-10.8) H Red Blood Count 3.17 M/UL (4.20-5.40) L Hemoglobin 9.7 G/DL (12.0-16.0) L Hematocrit 29.1 % (37.0-47.0) L Mean Corpuscular Volume 92 FL (80-99) Mean Corpuscular Hemoglobin 30.6 PG (27.0-31.0) Mean Corpuscular Hemoglobin Concent 33.3 G/DL (32.0-36.0) Red Cell Distribution Width 11.5 % (11.6-14.8) L Platelet Count 197 K/UL (150-450) Mean Platelet Volume 7.6 FL (6.5-10.1) Neutrophils (%) (Auto) 81.8 % (45.0-75.0) H Lymphocytes (%) (Auto) 9.8 % (20.0-45.0) L Monocytes (%) (Auto) 8.0 % (1.0-10.0) Eosinophils (%) (Auto) 0.2 % (0.0-3.0) Basophils (%) (Auto) 0.3 % (0.0-2.0) Sodium Level 140 MMOL/L (136-145) Potassium Level 4.2 MMOL/L (3.5-5.1) Chloride Level 100 MMOL/L (98-107) Carbon Dioxide Level 36 MMOL/L (21-32) H Anion Gap 4 mmol/L (5-15) L Blood Urea Nitrogen 5 mg/dL (7-18) L Creatinine 0.6 MG/DL (0.55-1.30) Estimat Glomerular Filtration Rate > 60 mL/min (>60) Glucose Level 122 MG/DL (74-106) H Calcium Level 8.7 MG/DL (8.5-10.1) Last 24 Hour Vital Signs Date Time Temp Pulse Resp B/P (MAP) Pulse Ox O2 Delivery O2 Flow Rate FiO2 10/24/18 16:00 98.5 107 19 141/68 (92) 97 10/24/18 12:36 95 18 99 Nasal Cannula 2.0 28 10/24/18 12:23 93 18 96 Nasal Cannula 2.0 28 10/24/18 12:23 28 10/24/18 12:09 96 131/72 10/24/18 12:00 98.3 98 21 132/71 (91) 95 10/24/18 10:20 99 18 98 Nasal Cannula 2.0 28 10/24/18 10:12 90 16 99 Nasal Cannula 2.0 28 10/24/18 10:08 103 16 96 Nasal Cannula 2.0 28 10/24/18 10:08 103 16 96 Nasal Cannula 2.0 28 10/24/18 09:00 Nasal Cannula 4.0 Nasal Cannula 4.0 10/24/18 08:20 90 18 98 Nasal Cannula 2.0 28 10/24/18 08:14 98 Nasal Cannula 2.0 28 10/24/18 08:14 Nasal Cannula 2.0 28 10/24/18 08:12 98.5 98 23 132/71 (91) 95 10/24/18 08:11 89 18 98 Nasal Cannula 2.0 28 10/24/18 08:11 28 10/24/18 05:30 94 2.0 28 10/24/18 05:28 104 126/63 10/24/18 04:00 97.8 104 20 126/63 (84) 96 10/24/18 02:28 88 17 99 Facial 30 10/24/18 01:40 88 20 98 Nasal Cannula 2.0 28 10/24/18 01:30 85 20 97 Nasal Cannula 2.0 28 10/24/18 00:00 98.6 98 17 122/63 (82) 94 10/23/18 23:25 98 122/63 10/23/18 21:00 Nasal Cannula 3.0 10/23/18 20:00 97.6 97 18 136/65 (88) 95 10/23/18 20:00 Nasal Cannula 2.0 28 10/23/18 20:00 Nasal Cannula 2.0 28 10/23/18 19:49 101 20 99 Nasal Cannula 2.0 28 10/23/18 19:47 Nasal Cannula 2.0 28 10/23/18 19:47 98 Nasal Cannula 2.0 28 10/23/18 19:39 94 20 96 Nasal Cannula 2.0 28 10/23/18 17:51 114 129/79 Intake and Output 10/23/18 10/24/18 18:59 06:59 Intake Total 150 ml 945 ml Output Total 510 ml 1300 ml Balance -360 ml -355 ml Intake Oral 120 ml IV Total 150 ml 825 ml Output Urine Total 510 ml 1300 ml Laboratory Tests Test 10/24/18 05:17 White Blood Count 11.7 K/UL (4.8-10.8) H Red Blood Count 3.17 M/UL (4.20-5.40) L Hemoglobin 9.7 G/DL (12.0-16.0) L Hematocrit 29.1 % (37.0-47.0) L Mean Corpuscular Volume 92 FL (80-99) Mean Corpuscular Hemoglobin 30.6 PG (27.0-31.0) Mean Corpuscular Hemoglobin Concent 33.3 G/DL (32.0-36.0) Red Cell Distribution Width 11.5 % (11.6-14.8) L Platelet Count 197 K/UL (150-450) Mean Platelet Volume 7.6 FL (6.5-10.1) Neutrophils (%) (Auto) 81.8 % (45.0-75.0) H Lymphocytes (%) (Auto) 9.8 % (20.0-45.0) L Monocytes (%) (Auto) 8.0 % (1.0-10.0) Eosinophils (%) (Auto) 0.2 % (0.0-3.0) Basophils (%) (Auto) 0.3 % (0.0-2.0) Sodium Level 140 MMOL/L (136-145) Potassium Level 4.2 MMOL/L (3.5-5.1) Chloride Level 100 MMOL/L (98-107) Carbon Dioxide Level 36 MMOL/L (21-32) H Anion Gap 4 mmol/L (5-15) L Blood Urea Nitrogen 5 mg/dL (7-18) L Creatinine 0.6 MG/DL (0.55-1.30) Estimat Glomerular Filtration Rate > 60 mL/min (>60) Glucose Level 122 MG/DL (74-106) H Calcium Level 8.7 MG/DL (8.5-10.1) Wound: clean, dry, intact, other Drains: none Neuro Status: normal Vascular Status: normal Assessment Post-op Diagnosis POD 3 Procedure Performed rt total knee arthroplasty Plan Plan: PT, discharge plan - to rehab in [place] from [facility]. possibly saturday if pulm condition improves Mari Morgan Oct 24, 2018 16:47
[2018-10-24 20:00] VITALS: BP 130/77
--- NOTE | 2018-10-24 21:09 | Pulmonology Progress Note ---
Assessment/Plan Assessment/Plan ASSESSMENT: Acute on chronic hypercapnic and hypoxemic respiratory failure DDD S/P R TKA (10/21 Dr. Roman) COPD on/off home O2 Former smoker HTN PLAN: bipap qhs prn distress Optimize pulmonary hygiene/mobilize as tolerated Titrate down FiO2 to keep SaO2 > 90% Advair & Spiriva (auto sub for Stiolto) RTC and PRN DUOneb HHN's IS Post-op care per ortho Pain control/supportive care --> AVOID NARCOTICS/SEDATIVES DVT Px: LMWH F/u CXR F/U TTE FC Subjective Constitutional: Reports: no symptoms Respiratory: Reports: productive cough Gastrointestinal/Abdominal: Reports: nausea Neurologic: Reports: no symptoms Psychiatric: Reports: no symptoms Allergies: Coded Allergies: No Known Allergies (Unverified , 10/14/18) Subjective still with pain no cp nv or bleeding toelrating some po not doing much with pt reamins on o2 Objective Last 24 Hour Vital Signs Date Time Temp Pulse Resp B/P (MAP) Pulse Ox O2 Delivery O2 Flow Rate FiO2 10/24/18 20:08 105 18 100 Nasal Cannula 2.0 28 10/24/18 20:08 105 18 98 Nasal Cannula 2.0 28 10/24/18 19:56 Nasal Cannula 2.0 28 10/24/18 19:56 96 Nasal Cannula 2.0 28 10/24/18 19:56 96 16 96 Nasal Cannula 2.0 28 10/24/18 19:55 28 10/24/18 19:55 96 18 96 Nasal Cannula 2.0 28 10/24/18 18:00 110 113/63 10/24/18 16:00 98.5 107 19 141/68 (92) 97 10/24/18 12:36 95 18 99 Nasal Cannula 2.0 28 10/24/18 12:23 93 18 96 Nasal Cannula 2.0 28 10/24/18 12:23 28 10/24/18 12:09 96 131/72 10/24/18 12:00 98.3 98 21 132/71 (91) 95 10/24/18 10:20 99 18 98 Nasal Cannula 2.0 28 10/24/18 10:12 90 16 99 Nasal Cannula 2.0 28 10/24/18 10:08 103 16 96 Nasal Cannula 2.0 28 10/24/18 10:08 103 16 96 Nasal Cannula 2.0 28 10/24/18 09:00 Nasal Cannula 4.0 Nasal Cannula 4.0 10/24/18 08:20 90 18 98 Nasal Cannula 2.0 28 10/24/18 08:14 98 Nasal Cannula 2.0 28 10/24/18 08:14 Nasal Cannula 2.0 28 10/24/18 08:12 98.5 98 23 132/71 (91) 95 10/24/18 08:11 89 18 98 Nasal Cannula 2.0 28 10/24/18 08:11 28 10/24/18 05:30 94 2.0 28 10/24/18 05:28 104 126/63 10/24/18 04:00 97.8 104 20 126/63 (84) 96 10/24/18 02:28 88 17 99 Facial 30 10/24/18 01:40 88 20 98 Nasal Cannula 2.0 28 10/24/18 01:30 85 20 97 Nasal Cannula 2.0 28 10/24/18 00:00 98.6 98 17 122/63 (82) 94 10/23/18 23:25 98 122/63 Intake and Output 10/23/18 10/24/18 18:59 06:59 Intake Total 150 ml 945 ml Output Total 510 ml 1300 ml Balance -360 ml -355 ml Intake Oral 120 ml IV Total 150 ml 825 ml Output Urine Total 510 ml 1300 ml General Appearance: WD/WN Respiratory/Chest: lungs clear, normal breath sounds Cardiovascular: normal rate, regular rhythm Abdomen: soft, non tender, no organomegaly Skin: no lesions Neurologic/Psychiatric: no motor/sensory deficits, abnormal gait, oriented x 3 Laboratory Tests 10/24/18 05:17: White Blood Count 11.7H, Red Blood Count 3.17L, Hemoglobin 9.7L, Hematocrit 29.1L, Mean Corpuscular Volume 92, Mean Corpuscular Hemoglobin 30.6, Mean Corpuscular Hemoglobin Concent 33.3, Red Cell Distribution Width 11.5L, Platelet Count 197, Mean Platelet Volume 7.6, Neutrophils (%) (Auto) 81.8H, Lymphocytes (%) (Auto) 9.8L, Monocytes (%) (Auto) 8.0, Eosinophils (%) (Auto) 0.2, Basophils (%) (Auto) 0.3, Sodium Level 140, Potassium Level 4.2, Chloride Level 100, Carbon Dioxide Level 36H, Anion Gap 4L, Blood Urea Nitrogen 5L, Creatinine 0.6, Estimat Glomerular Filtration Rate > 60, Glucose Level 122H, Calcium Level 8.7 Current Medications Medications (Trade) Dose Ordered Sig/Singh Route PRN Reason Start Time Stop Time Status Last Admin Dose Admin Acetaminophen (Tylenol) 650 mg Q4H PRN ORAL temp>100.2 or headache 10/23/18 18:00 11/20/18 17:59 10/23/18 17:49 Albuterol/ Ipratropium (Albuterol/ Ipratropium) 3 ml Q4H PRN HHN Shortness of Breath 10/23/18 18:00 10/27/18 17:59 Albuterol/ Ipratropium (Albuterol/ Ipratropium) 3 ml Q6HRT HHN 10/23/18 19:00 10/27/18 12:59 10/24/18 19:53 Celecoxib (CeleBREX) 200 mg DAILY ORAL 10/24/18 09:00 11/20/18 08:59 10/24/18 09:12 Dextrose/ Electrolytes 1,000 ml @ 75 mls/hr [id number] IV 10/23/18 17:15 11/20/18 12:59 10/24/18 06:02 Diltiazem HCl (Cardizem) 60 mg EVERY 6 HOURS ORAL 10/23/18 18:00 11/21/18 00:00 10/24/18 12:09 Docusate Sodium (Colace) 100 mg THREE TIMES A DAY ORAL 10/23/18 18:00 11/20/18 12:59 10/24/18 17:32 Enoxaparin Sodium (Lovenox) 30 mg EVERY 12 HOURS SUBQ 10/23/18 21:00 11/20/18 15:59 10/24/18 09:14 Ferrous Sulfate (Feosol) 325 mg THREE TIMES A DAY ORAL 10/23/18 18:00 11/20/18 12:59 10/24/18 17:36 Magnesium Hydroxide (Mom) 30 ml DAILYPRN PRN ORAL Constipation 10/23/18 18:00 11/22/18 17:59 Ondansetron HCl (Zofran) 4 mg Q6H PRN IVP Nausea & Vomiting 10/23/18 18:00 11/20/18 11:59 Salmeterol Xinafoate/ Fluticasone (Advair 250/50 Diskus) 1 puffs BID INH 10/23/18 18:00 11/20/18 17:59 10/24/18 19:53 Tiotropium [place] (Spiriva Inhaler) 1 puff DAILY INH 10/24/18 09:00 11/21/18 08:59 10/24/18 10:01 Tramadol HCl (Ultram) 50 mg Q4H PRN ORAL PAIN 4-10 10/23/18 18:00 10/28/18 17:59 10/24/18 17:32 Lorena Forde DO Oct 24, 2018 21:09
[2018-10-25] VITALS: BP 117/62
[2018-10-25] MEDS: Albuterol/Ipratropium 3ml neb HHN SCH ×4 (00:01→19:55)
[2018-10-25 05:39] VITALS: BP 134/75
[2018-10-25] MEDS: dilTIAZem HCl 60mg tab ORAL SCH ×4 (05:40→17:57)
[2018-10-25 07:50] LABS: BASOPHILS % (AUTO) 0.4 % (0.0-2.0); EOSINOPHILS % (AUTO) 1.1 % (0.0-3.0); HEMATOCRIT 27.5 % (37.0-47.0); HEMOGLOBIN 9.5 G/DL (12.0-16.0); LYMPHOCYTES % (AUTO) 13.2 % (20.0-45.0); MEAN CORPUSCULAR VOLUME 91 FL (80-99); MONOCYTES % (AUTO) 8.4 % (1.0-10.0); NEUTROPHILS % (AUTO) 76.8 % (45.0-75.0); PLATELET COUNT 221 K/UL (150-450); RED BLOOD COUNT 3.02 M/UL (4.20-5.40); RED CELL DISTRIBUTION WIDTH 11.3 % (11.6-14.8)
[2018-10-25 08:00] VITALS: BP 118/60
[2018-10-25] MEDS: Advair 250/50 Inhaler - 14 dose INH SCH ×2 (08:45→19:54)
[2018-10-25] MEDS: Docusate 100mg cap ORAL SCH ×3 (08:48→17:56)
[2018-10-25] MEDS: celeBREX 200mg Cap **SURGERY PATIENTS ONLY ORAL SCH (08:48)
[2018-10-25] MEDS: Enoxaparin 30mg Inj SUBQ SCH ×2 (08:51→20:55)
[2018-10-25] MEDS ORDERED: D5 1/2NS 1000ml IV ONE (09:54)
[2018-10-25] MEDS: D5 1/2NS w/KCl 20mEq 1,000 ML IV SCH ×2 (11:24→22:35)
[2018-10-25 11:44] VITALS: BP 119/67
--- NOTE | 2018-10-25 13:27 | Orthopedic Progress Note ---
Orthopedic - Progress Note Subjective Symptoms: c/o post-op hip pain, c/o post-op knee pain Additional Comments doing much better with PT, walked in the hallway. Ultram for pain meds Objective Last 24 Hour Vital Signs Date Time Temp Pulse Resp B/P (MAP) Pulse Ox O2 Delivery O2 Flow Rate FiO2 10/25/18 12:00 108 116/58 10/25/18 11:44 97.5 104 20 119/67 (84) 98 10/25/18 09:00 Nasal Cannula 3.0 10/25/18 08:46 105 18 96 Nasal Cannula 2.0 28 10/25/18 08:46 101 18 97 Nasal Cannula 2.0 28 10/25/18 08:46 104 18 96 Nasal Cannula 2.0 28 10/25/18 08:46 104 18 97 Nasal Cannula 2.0 28 10/25/18 08:00 98.7 116 22 118/60 (79) 98 10/25/18 06:59 102 22 100 Nasal Cannula 2.0 28 10/25/18 06:58 Nasal Cannula 2.0 28 10/25/18 06:58 97 Nasal Cannula 2.0 28 10/25/18 06:52 103 20 97 Nasal Cannula 2.0 28 10/25/18 06:52 36 10/25/18 05:40 113 134/75 10/25/18 05:39 98.5 113 20 134/75 (94) 97 10/25/18 00:02 Nasal Cannula 2.0 28 10/25/18 00:01 Nasal Cannula 2.0 28 10/25/18 00:00 97.8 105 18 117/62 (80) 96 10/25/18 00:00 105 117/62 10/24/18 21:00 Nasal Cannula 3.0 10/24/18 20:08 105 18 100 Nasal Cannula 2.0 28 10/24/18 20:08 105 18 98 Nasal Cannula 2.0 28 10/24/18 20:00 97.2 109 22 130/77 (94) 98 10/24/18 19:56 Nasal Cannula 2.0 28 10/24/18 19:56 96 Nasal Cannula 2.0 28 10/24/18 19:56 96 16 96 Nasal Cannula 2.0 28 10/24/18 19:55 28 10/24/18 19:55 96 18 96 Nasal Cannula 2.0 28 10/24/18 18:00 110 113/63 10/24/18 16:00 98.5 107 19 141/68 (92) 97 Intake and Output 10/24/18 10/25/18 19:00 07:00 Intake Total 1368.0 ml 1260 ml Output Total 1525 ml 600 ml Balance -157.0 ml 660 ml Intake Oral 478 ml 360 ml IV Total 890.0 ml 900 ml Output Urine Total 1525 ml 600 ml # Bowel Movements 1 Laboratory Tests Test 10/25/18 05:50 White Blood Count 10.0 K/UL (4.8-10.8) Red Blood Count 3.02 M/UL (4.20-5.40) L Hemoglobin 9.5 G/DL (12.0-16.0) L Hematocrit 27.5 % (37.0-47.0) L Mean Corpuscular Volume 91 FL (80-99) Mean Corpuscular Hemoglobin 31.3 PG (27.0-31.0) H Mean Corpuscular Hemoglobin Concent 34.4 G/DL (32.0-36.0) Red Cell Distribution Width 11.3 % (11.6-14.8) L Platelet Count 221 K/UL (150-450) Mean Platelet Volume 7.2 FL (6.5-10.1) Neutrophils (%) (Auto) 76.8 % (45.0-75.0) H Lymphocytes (%) (Auto) 13.2 % (20.0-45.0) L Monocytes (%) (Auto) 8.4 % (1.0-10.0) Eosinophils (%) (Auto) 1.1 % (0.0-3.0) Basophils (%) (Auto) 0.4 % (0.0-2.0) Wound: clean, dry, intact Drains: none Neuro Status: normal Assessment Post-op Diagnosis S/P R TKA, POD#4 Doing better with her pulmonary function on room air. Continue PT Discharge planning to SNF on Saturday or Saturday. Ok to discharge from ortho stand point if stable medically. Continue DVT proph and mobilization Duran Roman MD Oct 25, 2018 13:27
[2018-10-25 16:00] VITALS: BP 131/69
[2018-10-25 20:00] VITALS: BP 136/74
--- NOTE | 2018-10-25 20:39 | Pulmonology Progress Note ---
Assessment/Plan Assessment/Plan ASSESSMENT: Acute on chronic hypercapnic and hypoxemic respiratory failure DDD S/P R TKA (10/21 Dr. Roman) COPD on/off home O2 Former smoker HTN PLAN: bipap qhs and prn distress Optimize pulmonary hygiene/mobilize as tolerated Titrate down FiO2 to keep SaO2 > 90% Advair & Spiriva (auto sub for Stiolto) RTC and PRN DUOneb HHN's IS Post-op care per ortho Pain control/supportive care --> AVOID NARCOTICS/SEDATIVES DVT Px: LMWH dc in am to rehab Subjective Constitutional: Reports: no symptoms HEENT: Repors: no symptoms Respiratory: Reports: no symptoms Neurologic: Reports: no symptoms Allergies: Coded Allergies: No Known Allergies (Unverified , 10/14/18) Subjective still with pain no cp nv or bleeding tolerating po not doing much with pt remains on o2 using bipap at night Objective Last 24 Hour Vital Signs Date Time Temp Pulse Resp B/P (MAP) Pulse Ox O2 Delivery O2 Flow Rate FiO2 10/25/18 20:01 102 20 100 Nasal Cannula 2.0 28 10/25/18 20:00 102 18 100 Nasal Cannula 2.0 28 10/25/18 19:57 107 18 97 Nasal Cannula 2.0 28 10/25/18 19:57 28 10/25/18 19:56 97 Nasal Cannula 2.0 28 10/25/18 19:56 Nasal Cannula 2.0 28 10/25/18 19:56 107 18 96 Nasal Cannula 2.0 28 10/25/18 17:57 111 131/69 10/25/18 16:00 98.3 111 22 131/69 (89) 98 10/25/18 13:37 100 20 100 Nasal Cannula 2.0 28 10/25/18 13:32 36 10/25/18 13:32 102 18 98 Nasal Cannula 2.0 28 10/25/18 12:00 108 116/58 10/25/18 11:44 97.5 104 20 119/67 (84) 98 10/25/18 09:00 Nasal Cannula 3.0 10/25/18 08:46 105 18 96 Nasal Cannula 2.0 28 10/25/18 08:46 101 18 97 Nasal Cannula 2.0 28 10/25/18 08:46 104 18 96 Nasal Cannula 2.0 28 10/25/18 08:46 104 18 97 Nasal Cannula 2.0 28 10/25/18 08:00 98.7 116 22 118/60 (79) 98 10/25/18 06:59 102 22 100 Nasal Cannula 2.0 28 10/25/18 06:58 Nasal Cannula 2.0 28 10/25/18 06:58 97 Nasal Cannula 2.0 28 10/25/18 06:52 103 20 97 Nasal Cannula 2.0 28 10/25/18 06:52 36 10/25/18 05:40 113 134/75 10/25/18 05:39 98.5 113 20 134/75 (94) 97 10/25/18 00:02 Nasal Cannula 2.0 28 10/25/18 00:01 Nasal Cannula 2.0 28 10/25/18 00:00 97.8 105 18 117/62 (80) 96 10/25/18 00:00 105 117/62 10/24/18 21:00 Nasal Cannula 3.0 Intake and Output 10/24/18 10/25/18 18:59 06:59 Intake Total 1293.0 ml 1260 ml Output Total 1525 ml 600 ml Balance -232.0 ml 660 ml Intake Oral 478 ml 360 ml IV Total 815.0 ml 900 ml Output Urine Total 1525 ml 600 ml # Bowel Movements 1 General Appearance: WD/WN Respiratory/Chest: lungs clear, normal breath sounds Cardiovascular: normal rate, regular rhythm Abdomen: soft, non tender, no organomegaly Extremities: no cyanosis Skin: no rash, no lesions Neurologic/Psychiatric: alert, oriented x 3 Laboratory Tests 10/25/18 05:50: White Blood Count 10.0, Red Blood Count 3.02L, Hemoglobin 9.5L, Hematocrit 27.5L , Mean Corpuscular Volume 91, Mean Corpuscular Hemoglobin 31.3H, Mean Corpuscular Hemoglobin Concent 34.4, Red Cell Distribution Width 11.3L, Platelet Count 221, Mean Platelet Volume 7.2, Neutrophils (%) (Auto) 76.8H, Lymphocytes (%) (Auto) 13.2L, Monocytes (%) (Auto) 8.4, Eosinophils (%) (Auto) 1.1, Basophils (%) (Auto) 0.4 Current Medications Medications (Trade) Dose Ordered Sig/Singh Route PRN Reason Start Time Stop Time Status Last Admin Dose Admin Acetaminophen (Tylenol) 650 mg Q4H PRN ORAL temp>100.2 or headache 10/23/18 18:00 11/20/18 17:59 10/23/18 17:49 Albuterol/ Ipratropium (Albuterol/ Ipratropium) 3 ml Q4H PRN HHN Shortness of Breath 10/23/18 18:00 10/27/18 17:59 Albuterol/ Ipratropium (Albuterol/ Ipratropium) 3 ml Q6HRT HHN 10/23/18 19:00 10/27/18 12:59 10/25/18 19:55 Celecoxib (CeleBREX) 200 mg DAILY ORAL 10/24/18 09:00 11/20/18 08:59 10/25/18 08:48 Dextrose/ Electrolytes 1,000 ml @ 75 mls/hr [id number] IV 10/23/18 17:15 11/20/18 12:59 10/25/18 11:24 Diltiazem HCl (Cardizem) 60 mg EVERY 6 HOURS ORAL 10/23/18 18:00 11/21/18 00:00 10/25/18 17:57 Docusate Sodium (Colace) 100 mg THREE TIMES A DAY ORAL 10/23/18 18:00 11/20/18 12:59 10/25/18 17:56 Enoxaparin Sodium (Lovenox) 30 mg EVERY 12 HOURS SUBQ 10/23/18 21:00 11/20/18 15:59 10/25/18 08:51 Ferrous Sulfate (Feosol) 325 mg THREE TIMES A DAY ORAL 10/23/18 18:00 11/20/18 12:59 10/25/18 17:56 Magnesium Hydroxide (Mom) 30 ml DAILYPRN PRN ORAL Constipation 10/23/18 18:00 11/22/18 17:59 Ondansetron HCl (Zofran) 4 mg Q6H PRN IVP Nausea & Vomiting 10/23/18 18:00 11/20/18 11:59 Salmeterol Xinafoate/ Fluticasone (Advair 250/50 Diskus) 1 puffs BID INH 10/23/18 18:00 11/20/18 17:59 10/25/18 19:54 Tiotropium [place] (Spiriva Inhaler) 1 puff DAILY INH 10/24/18 09:00 11/21/18 08:59 10/25/18 08:45 Tramadol HCl (Ultram) 50 mg Q4H PRN ORAL PAIN 4-10 10/23/18 18:00 10/28/18 17:59 10/24/18 21:14 Lorena Forde DO Oct 25, 2018 20:39
[2018-10-26] VITALS (9 sets, daily range): BP systolic 105–152; BP diastolic 64–88
[2018-10-26] MEDS: dilTIAZem HCl 60mg tab ORAL SCH ×4 (00:47→17:21)
[2018-10-26] MEDS: Albuterol/Ipratropium 3ml neb HHN SCH ×4 (01:00→19:25)
[2018-10-26] MEDS: D5 1/2NS w/KCl 20mEq 1,000 ML IV SCH (05:15)
[2018-10-26] MEDS: Docusate 100mg cap ORAL SCH ×3 (08:11→17:21)
[2018-10-26] MEDS: celeBREX 200mg Cap **SURGERY PATIENTS ONLY ORAL SCH (08:12)
[2018-10-26 08:13] LABS: BASOPHILS % (AUTO) 0.8 % (0.0-2.0); EOSINOPHILS % (AUTO) 2.8 % (0.0-3.0); HEMATOCRIT 29.2 % (37.0-47.0); HEMOGLOBIN 9.5 G/DL (12.0-16.0); MEAN CORPUSCULAR VOLUME 91 FL (80-99); MONOCYTES % (AUTO) 13.2 % (1.0-10.0); NEUTROPHILS % (AUTO) 66.2 % (45.0-75.0); PLATELET COUNT 280 K/UL (150-450); RED CELL DISTRIBUTION WIDTH 11.5 % (11.6-14.8); WHITE BLOOD COUNT 9.3 K/UL (4.8-10.8)
[2018-10-26] MEDS: Enoxaparin 30mg Inj SUBQ SCH ×2 (08:13→21:00)
--- NOTE | 2018-10-26 08:21 | Pulmonology Progress Note ---
Assessment/Plan Assessment/Plan ASSESSMENT: Acute on chronic hypercapnic and hypoxemic respiratory failure DDD S/P R TKA (10/21 Dr. Roman) COPD on/off home O2 Former smoker HTN PLAN: bipap qhs and prn distress Optimize pulmonary hygiene/mobilize as tolerated Advair & Spiriva (auto sub for Stiolto) RTC and PRN DUOneb HHN's IS Post-op care per ortho Pain control/supportive care --> AVOID NARCOTICS/SEDATIVES DVT Px: LMWH dc in am to rehab Subjective ROS Limited/Unobtainable: No Constitutional: Reports: no symptoms HEENT: Repors: no symptoms Respiratory: Reports: no symptoms Cardiovascular: Reports: no symptoms Gastrointestinal/Abdominal: Reports: no symptoms Allergies: Coded Allergies: No Known Allergies (Unverified , 10/14/18) Subjective doing well working with PT off o2 no cp nv or bleeding tolerating po using bipap at night Objective Last 24 Hour Vital Signs Date Time Temp Pulse Resp B/P (MAP) Pulse Ox O2 Delivery O2 Flow Rate FiO2 10/26/18 08:00 99.0 119 18 135/64 (87) 94 10/26/18 06:57 108 22 100 Nasal Cannula 2.0 28 10/26/18 06:56 Nasal Cannula 2.0 28 10/26/18 06:56 96 Nasal Cannula 2.0 28 10/26/18 06:51 36 10/26/18 06:51 89 20 97 Nasal Cannula 2.0 28 10/26/18 06:00 92 112/68 10/26/18 04:00 98.4 90 18 105/67 (80) 96 10/26/18 02:04 Nasal Cannula 2.0 28 10/26/18 02:03 Nasal Cannula 2.0 28 10/26/18 00:47 107 132/75 10/26/18 00:00 98.9 107 18 132/75 (94) 96 10/25/18 21:00 Room Air 10/25/18 20:01 102 20 100 Nasal Cannula 2.0 28 10/25/18 20:00 98.4 104 19 136/74 (94) 99 10/25/18 20:00 102 18 100 Nasal Cannula 2.0 28 10/25/18 19:57 107 18 97 Nasal Cannula 2.0 28 11/24/18 19:57 28 10/25/18 19:56 97 Nasal Cannula 2.0 28 10/25/18 19:56 Nasal Cannula 2.0 28 10/25/18 19:56 107 18 96 Nasal Cannula 2.0 28 10/25/18 17:57 111 131/69 10/25/18 16:00 98.3 111 22 131/69 (89) 98 10/25/18 13:37 100 20 100 Nasal Cannula 2.0 28 10/25/18 13:32 36 10/25/18 13:32 102 18 98 Nasal Cannula 2.0 28 10/25/18 12:00 108 116/58 10/25/18 11:44 97.5 104 20 119/67 (84) 98 10/25/18 09:00 Nasal Cannula 3.0 10/25/18 08:46 105 18 96 Nasal Cannula 2.0 28 10/25/18 08:46 101 18 97 Nasal Cannula 2.0 28 10/25/18 08:46 104 18 96 Nasal Cannula 2.0 28 10/25/18 08:46 104 18 97 Nasal Cannula 2.0 28 Intake and Output 10/25/18 10/26/18 19:00 07:00 Intake Total 900 ml 1085 ml Output Total 600 ml Balance 300 ml 1085 ml Intake Oral 300 ml 260 ml IV Total 600 ml 825 ml Output Urine Total 600 ml # Voids 2 3 General Appearance: WD/WN Respiratory/Chest: lungs clear, normal breath sounds Cardiovascular: normal rate, regular rhythm Abdomen: soft, non tender, no organomegaly Skin: lesions Neurologic/Psychiatric: abnormal gait, alert, oriented x 3 Laboratory Tests 10/26/18 07:15: White Blood Count 9.3, Red Blood Count 3.20L, Hemoglobin 9.5L, Hematocrit 29.2L , Mean Corpuscular Volume 91, Mean Corpuscular Hemoglobin 29.8, Mean Corpuscular Hemoglobin Concent 32.6, Red Cell Distribution Width 11.5L, Platelet Count 280, Mean Platelet Volume 6.6, Neutrophils (%) (Auto) 66.2, Lymphocytes (%) (Auto) 17.0L, Monocytes (%) (Auto) 13.2H, Eosinophils (%) (Auto ) 2.8, Basophils (%) (Auto) 0.8 Current Medications Medications (Trade) Dose Ordered Sig/Singh Route PRN Reason Start Time Stop Time Status Last Admin Dose Admin Acetaminophen (Tylenol) 650 mg Q4H PRN ORAL temp>100.2 or headache 10/23/18 18:00 11/20/18 17:59 10/23/18 17:49 Albuterol/ Ipratropium (Albuterol/ Ipratropium) 3 ml Q4H PRN HHN Shortness of Breath 10/23/18 18:00 10/27/18 17:59 Albuterol/ Ipratropium (Albuterol/ Ipratropium) 3 ml Q6HRT HHN 10/23/18 19:00 10/27/18 12:59 10/26/18 06:56 Celecoxib (CeleBREX) 200 mg DAILY ORAL 10/24/18 09:00 11/20/18 08:59 10/26/18 08:12 Dextrose/ Electrolytes 1,000 ml @ 75 mls/hr [id number] IV 10/23/18 17:15 11/20/18 12:59 10/26/18 05:15 Diltiazem HCl (Cardizem) 60 mg EVERY 6 HOURS ORAL 10/23/18 18:00 11/21/18 00:00 10/26/18 00:47 Docusate Sodium (Colace) 100 mg THREE TIMES A DAY ORAL 10/23/18 18:00 11/20/18 12:59 10/26/18 08:11 Enoxaparin Sodium (Lovenox) 30 mg EVERY 12 HOURS SUBQ 10/23/18 21:00 11/20/18 15:59 10/26/18 08:13 Ferrous Sulfate (Feosol) 325 mg THREE TIMES A DAY ORAL 10/23/18 18:00 11/20/18 12:59 10/26/18 08:11 Magnesium Hydroxide (Mom) 30 ml DAILYPRN PRN ORAL Constipation 10/23/18 18:00 11/22/18 17:59 Ondansetron HCl (Zofran) 4 mg Q6H PRN IVP Nausea & Vomiting 10/23/18 18:00 11/20/18 11:59 Salmeterol Xinafoate/ Fluticasone (Advair 250/50 Diskus) 1 puffs BID INH 10/23/18 18:00 11/20/18 17:59 10/25/18 19:54 Tiotropium [place] (Spiriva Inhaler) 1 puff DAILY INH 10/24/18 09:00 11/21/18 08:59 10/25/18 08:45 Tramadol HCl (Ultram) 50 mg Q4H PRN ORAL PAIN 4-10 10/23/18 18:00 10/28/18 17:59 10/24/18 21:14 Lorena Forde DO Oct 26, 2018 08:21
[2018-10-26] MEDS: Advair 250/50 Inhaler - 14 dose INH SCH ×2 (09:37→19:25)
--- NOTE | 2018-10-26 20:54 | General Progress Note ---
Assessment/Plan Assessment/Plan s/p tkr severe copd [facility] mon[facility] closely PT OT CPM PER ORTHO DISCUSSED WITH NURSING STAFF Subjective Date patient seen: Oct 26, 2018 Time patient seen: 20:52 Constitutional: Reports: no symptoms HEENT: Reports: no symptoms Allergies: Coded Allergies: No Known Allergies (Unverified , 10/14/18) Subjective doing better able to ambulated awaits transfer to [facility] am Objective Last 24 Hour Vital Signs Date Time Temp Pulse Resp B/P (MAP) Pulse Ox O2 Delivery O2 Flow Rate FiO2 10/26/18 20:44 Room Air 10/26/18 20:00 99.1 107 17 152/83 (106) 96 10/26/18 19:41 106 20 99 Nasal Cannula 2.0 28 10/26/18 19:41 36 10/26/18 19:29 105 20 96 Nasal Cannula 2.0 28 10/26/18 19:28 Nasal Cannula 2.0 28 10/26/18 19:28 96 Nasal Cannula 2.0 28 10/26/18 19:26 105 18 96 Nasal Cannula 2.0 28 10/26/18 19:25 105 20 96 Nasal Cannula 2.0 28 10/26/18 18:49 115 145/85 10/26/18 17:21 113 152/83 10/26/18 16:00 99.3 113 18 152/83 (106) 95 10/26/18 14:00 114 18 150/83 (105) 100 10/26/18 12:50 124 18 148/88 (108) 94 10/26/18 12:48 Nasal Cannula 2.0 28 10/26/18 12:48 Nasal Cannula 2.0 28 10/26/18 12:44 124 148/88 10/26/18 12:35 99.9 124 18 147/86 (106) 94 10/26/18 09:38 114 22 97 Nasal Cannula 2.0 28 10/26/18 09:38 114 20 97 Nasal Cannula 2.0 28 10/26/18 09:38 110 18 97 Nasal Cannula 2.0 28 10/26/18 09:38 113 20 97 Nasal Cannula 2.0 28 10/26/18 09:00 96 10/26/18 08:33 Room Air 11/25/18 08:00 99.0 119 18 135/64 (87) 94 10/26/18 06:57 108 22 100 Nasal Cannula 2.0 28 10/26/18 06:56 Nasal Cannula 2.0 28 10/26/18 06:56 96 Nasal Cannula 2.0 28 10/26/18 06:51 36 10/26/18 06:51 89 20 97 Nasal Cannula 2.0 28 10/26/18 06:00 92 112/68 10/26/18 04:00 98.4 90 18 105/67 (80) 96 10/26/18 02:04 Nasal Cannula 2.0 28 10/26/18 02:03 Nasal Cannula 2.0 28 10/26/18 00:47 107 132/75 10/26/18 00:00 98.9 107 18 132/75 (94) 96 10/25/18 21:00 Room Air Intake and Output 10/25/18 10/26/18 19:00 07:00 Intake Total 900 ml 1085 ml Output Total 600 ml Balance 300 ml 1085 ml Intake Oral 300 ml 260 ml IV Total 600 ml 825 ml Output Urine Total 600 ml # Voids 2 3 Laboratory Tests 10/26/18 07:15: White Blood Count 9.3, Red Blood Count 3.20L, Hemoglobin 9.5L, Hematocrit 29.2L , Mean Corpuscular Volume 91, Mean Corpuscular Hemoglobin 29.8, Mean Corpuscular Hemoglobin Concent 32.6, Red Cell Distribution Width 11.5L, Platelet Count 280, Mean Platelet Volume 6.6, Neutrophils (%) (Auto) 66.2, Lymphocytes (%) (Auto) 17.0L, Monocytes (%) (Auto) 13.2H, Eosinophils (%) (Auto ) 2.8, Basophils (%) (Auto) 0.8 Height (Feet): 4 Height (Inches): 11.00 Weight (Pounds): 138 General Appearance: WD/WN Neck: non-tender Cardiovascular: normal rate, regular rhythm Respiratory/Chest: other - perolond exp phase Abdomen: soft, no mass Extremities: other - no clubbing Objective nad wearing bipap no jvd 's1s2,rrr distant breath soud soft Matthew Helms MD Oct 26, 2018 20:54
[2018-10-27] VITALS: BP 152/87
[2018-10-27] MEDS: dilTIAZem HCl 60mg tab ORAL SCH ×3 (00:21→12:00)
[2018-10-27] MEDS: Albuterol/Ipratropium 3ml neb HHN SCH ×2 (01:03→08:35)
[2018-10-27 04:00] VITALS: BP_SYST 155; BP_DIAS 75; BP_DIAS 84
[2018-10-27 08:00] VITALS: BP 136/59
[2018-10-27] MEDS: celeBREX 200mg Cap **SURGERY PATIENTS ONLY ORAL SCH (08:53)
[2018-10-27] MEDS: Docusate 100mg cap ORAL SCH ×2 (08:53→12:00)
[2018-10-27] MEDS: Enoxaparin 30mg Inj SUBQ SCH (08:55)
--- NOTE | 2018-10-27 09:10 | Orthopedic Progress Note ---
Orthopedic - Progress Note Subjective Symptoms: improved Objective Last 24 Hour Vital Signs Date Time Temp Pulse Resp B/P (MAP) Pulse Ox O2 Delivery O2 Flow Rate FiO2 10/27/18 08:54 107 136/59 10/27/18 08:43 107 20 100 Nasal Cannula 2.0 28 10/27/18 08:43 28 10/27/18 08:38 99 Nasal Cannula 2.0 28 10/27/18 08:38 Nasal Cannula 2.0 28 10/27/18 08:35 109 20 99 Nasal Cannula 2.0 28 10/27/18 08:00 97.7 102 20 136/59 (84) 93 10/27/18 05:43 108 155/75 10/27/18 04:00 97.9 108 17 155/84 (107) 90 10/27/18 04:00 98.3 108 20 155/75 (101) 90 10/27/18 01:12 36 10/27/18 01:12 104 20 100 Nasal Cannula 2.0 28 10/27/18 01:03 101 20 97 Nasal Cannula 2.0 28 10/27/18 00:21 105 152/87 10/27/18 00:00 97.8 105 17 152/87 (108) 93 10/26/18 20:44 Room Air 10/26/18 20:00 99.1 107 17 133/70 (91) 96 10/26/18 19:41 106 20 99 Nasal Cannula 2.0 28 10/26/18 19:41 36 10/26/18 19:29 105 20 96 Nasal Cannula 2.0 28 10/26/18 19:28 Nasal Cannula 2.0 28 10/26/18 19:28 96 Nasal Cannula 2.0 28 10/26/18 19:26 105 18 96 Nasal Cannula 2.0 28 10/26/18 19:25 105 20 96 Nasal Cannula 2.0 28 10/26/18 18:49 115 145/85 10/26/18 17:21 113 152/83 10/26/18 16:00 99.3 113 18 152/83 (106) 95 10/26/18 14:00 114 18 150/83 (105) 100 10/26/18 12:50 124 18 148/88 (108) 94 10/26/18 12:48 Nasal Cannula 2.0 28 10/26/18 12:48 Nasal Cannula 2.0 28 10/26/18 12:44 124 148/88 10/26/18 12:35 99.9 124 18 147/86 (106) 94 10/26/18 09:38 114 22 97 Nasal Cannula 2.0 28 10/26/18 09:38 114 20 97 Nasal Cannula 2.0 28 10/26/18 09:38 110 18 97 Nasal Cannula 2.0 28 10/26/18 09:38 113 20 97 Nasal Cannula 2.0 28 Intake and Output 10/26/18 10/27/18 19:00 07:00 Intake Total 600 ml 1200 ml Output Total 825 ml Balance 600 ml 375 ml Intake Oral 600 ml 1100 ml IV Total 100 ml Output Urine Total 600 ml Emesis 200 ml Estimated Blood Loss 25 ml # Voids 3 5 # Bowel Movements 1 Wound: clean, dry, intact Drains: none Neuro Status: normal Vascular Status: normal Assessment Post-op Diagnosis POD 6 Procedure Performed rt total knee arthroplasty Plan Plan: discharge plan - to [facility] today. cleared per viviana and Dr Helms. f/u Dr. Roman 7-10 days Mari Morgan Oct 27, 2018 09:10
[2018-10-27 12:00] VITALS: BP 129/74
--- NOTE | 2018-10-27 13:37 | Diagnostic Imaging Report ---
APPROVED REPORT CPT Code: 33399 Present Symptoms Shortness of breath Comments: Post-Op RIGHT LEG: Venous imaging reveals a patent deep venous system. There is no evidence of thrombus within the common femoral vein and proximal superficial femoral vein. The greater saphenous vein is also within normal limits. Doppler indicates normal spontaneous flow within these segments. The mid superficial femoral to tibial segments were not imaged due to bandages. LEFT LEG: Venous imaging reveals a patent deep venous system. There is no evidence of thrombus within the femoral, popliteal or tibial segments. The greater saphenous vein is also within normal limits. Doppler indicates normal spontaneous flow within these segments.
--- NOTE | 2018-10-27 15:23 | Pulmonology Progress Note ---
Assessment/Plan Assessment/Plan Pulmonary Consultation Note Assessment/Plan ASSESSMENT: Acute on chronic hypercapnic and hypoxemic respiratory failure DDD S/P R TKA (10/21 Dr. Roman) COPD on/off home O2 Former smoker HTN PLAN: bipap qhs and prn distress Optimize pulmonary hygiene/mobilize as tolerated Advair & Spiriva (auto sub for Stiolto) RTC and PRN DUOneb HHN's IS Post-op care per ortho Pain control/supportive care --> AVOID NARCOTICS/SEDATIVES DVT Px: LMWH dc in am to rehab Subjective ROS Limited/Unobtainable: No Constitutional: Reports: no symptoms HEENT: Repors: no symptoms Respiratory: Reports: no symptoms Cardiovascular: Reports: no symptoms Gastrointestinal/Abdominal: Reports: no symptoms Allergies: Coded Allergies: No Known Allergies (Unverified , 10/14/18) Subjective doing well working with PT off o2 no cp nv or bleeding tolerating po using bipap at night Objective Vital Signs Noted General Appearance: WD/WN Respiratory/Chest: lungs clear, normal breath sounds Cardiovascular: normal rate, regular rhythm Abdomen: soft, non tender, no organomegaly Skin: lesions Neurologic/Psychiatric: abnormal gait, alert, oriented x 3 Laboratory Tests 10/26/18 07:15: White Blood Count 9.3, Red Blood Count 3.20L, Hemoglobin 9.5L, Hematocrit 29.2L , Mean Corpuscular Volume 91, Mean Corpuscular Hemoglobin 29.8, Mean Corpuscular Hemoglobin Concent 32.6, Red Cell Distribution Width 11.5L, Platelet Count 280, Mean Platelet Volume 6.6, Neutrophils (%) (Auto) 66.2, Lymphocytes (%) (Auto) 17.0L, Monocytes (%) (Auto) 13.2H, Eosinophils (%) (Auto ) 2.8, Basophils (%) (Auto) 0.8 Current Medications Medications (Trade) Dose Ordered Sig/Singh Route PRN Reason Start Time Stop Time Status Last Admin Dose Admin Acetaminophen (Tylenol) 650 mg Q4H PRN ORAL temp>100.2 or headache 10/23/18 18:00 11/20/18 17:59 10/23/18 17:49 Albuterol/ Ipratropium (Albuterol/ Ipratropium) 3 ml Q4H PRN HHN Shortness of Breath 10/23/18 18:00 10/27/18 17:59 Albuterol/ Ipratropium (Albuterol/ Ipratropium) 3 ml Q6HRT HHN 10/23/18 19:00 10/27/18 12:59 10/26/18 06:56 Celecoxib (CeleBREX) 200 mg DAILY ORAL 10/24/18 09:00 11/20/18 08:59 10/26/18 08:12 Dextrose/ Electrolytes 1,000 ml @ 75 mls/hr [id number] IV 10/23/18 17:15 11/20/18 12:59 10/26/18 05:15 Diltiazem HCl (Cardizem) 60 mg EVERY 6 HOURS ORAL 10/23/18 18:00 11/21/18 00:00 10/26/18 00:47 Docusate Sodium (Colace) 100 mg THREE TIMES A DAY ORAL 10/23/18 18:00 11/20/18 12:59 10/26/18 08:11 Enoxaparin Sodium (Lovenox) 30 mg EVERY 12 HOURS SUBQ 10/23/18 21:00 11/20/18 15:59 10/26/18 08:13 Ferrous Sulfate (Feosol) 325 mg THREE TIMES A DAY ORAL 10/23/18 18:00 11/20/18 12:59 10/26/18 08:11 Magnesium Hydroxide (Mom) 30 ml DAILYPRN PRN ORAL Constipation 10/23/18 18:00 11/22/18 17:59 Ondansetron HCl (Zofran) 4 mg Q6H PRN IVP Nausea & Vomiting 10/23/18 18:00 11/20/18 11:59 Salmeterol Xinafoate/ Fluticasone (Advair 250/50 Diskus) 1 puffs BID INH 10/23/18 18:00 11/20/18 17:59 10/25/18 19:54 Tiotropium [place] (Spiriva Inhaler) 1 puff DAILY INH 10/24/18 09:00 11/21/18 08:59 10/25/18 08:45 Tramadol HCl (Ultram) 50 mg Q4H PRN ORAL PAIN 4-10 10/23/18 18:00 10/28/18 17:59 10/24/18 21:14 Subjective ROS Limited/Unobtainable: No Allergies: Coded Allergies: No Known Allergies (Unverified , 10/14/18) Objective Last 24 Hour Vital Signs Date Time Temp Pulse Resp B/P (MAP) Pulse Ox O2 Delivery O2 Flow Rate FiO2 10/27/18 14:18 114 20 98 Room Air 21 10/27/18 14:17 21 10/27/18 14:16 113 20 98 Room Air 21 10/27/18 12:00 98.2 112 16 129/74 (92) 93 10/27/18 12:00 103 136/59 10/27/18 10:22 103 20 92 Nasal Cannula 2.0 28 10/27/18 10:22 103 20 92 Nasal Cannula 2.0 28 10/27/18 10:21 103 20 92 Nasal Cannula 2.0 28 10/27/18 10:17 103 20 92 Nasal Cannula 2.0 28 10/27/18 09:10 Room Air 10/27/18 08:54 107 136/59 10/27/18 08:43 107 20 100 Nasal Cannula 2.0 28 10/27/18 08:43 28 10/27/18 08:38 99 Nasal Cannula 2.0 28 10/27/18 08:38 Nasal Cannula 2.0 28 10/27/18 08:35 109 20 99 Nasal Cannula 2.0 28 10/27/18 08:00 97.7 102 20 136/59 (84) 93 10/27/18 05:43 108 155/75 10/27/18 04:00 97.9 108 17 155/84 (107) 90 10/27/18 04:00 98.3 108 20 155/75 (101) 90 10/27/18 01:12 36 10/27/18 01:12 104 20 100 Nasal Cannula 2.0 28 10/27/18 01:03 101 20 97 Nasal Cannula 2.0 28 10/27/18 00:21 105 152/87 10/27/18 00:00 97.8 105 17 152/87 (108) 93 10/26/18 20:44 Room Air 10/26/18 20:00 99.1 107 17 133/70 (91) 96 10/26/18 19:41 106 20 99 Nasal Cannula 2.0 28 10/26/18 19:41 36 10/26/18 19:29 105 20 96 Nasal Cannula 2.0 28 10/26/18 19:28 Nasal Cannula 2.0 28 10/26/18 19:28 96 Nasal Cannula 2.0 28 10/26/18 19:26 105 18 96 Nasal Cannula 2.0 28 10/26/18 19:25 105 20 96 Nasal Cannula 2.0 28 10/26/18 18:49 115 145/85 10/26/18 17:21 113 152/83 10/26/18 16:00 99.3 113 18 152/83 (106) 95 Intake and Output 10/26/18 10/27/18 19:00 07:00 Intake Total 600 ml 1200 ml Output Total 825 ml Balance 600 ml 375 ml Intake Oral 600 ml 1100 ml IV Total 100 ml Output Urine Total 600 ml Emesis 200 ml Estimated Blood Loss 25 ml # Voids 3 5 # Bowel Movements 1 Current Medications Medications (Trade) Dose Ordered Sig/Singh Route PRN Reason Start Time Stop Time Status Last Admin Dose Admin Acetaminophen (Tylenol) 650 mg Q4H PRN ORAL temp>100.2 or headache 10/23/18 18:00 11/20/18 17:59 10/23/18 17:49 Albuterol/ Ipratropium (Albuterol/ Ipratropium) 3 ml Q4H PRN HHN Shortness of Breath 10/23/18 18:00 10/27/18 17:59 10/27/18 14:13 Amlodipine Besylate (Norvasc) 2.5 mg BID ORAL 10/26/18 18:45 11/25/18 18:44 10/27/18 08:54 Celecoxib (CeleBREX) 200 mg DAILY ORAL 10/24/18 09:00 11/20/18 08:59 10/27/18 08:53 Diltiazem HCl (Cardizem) 60 mg EVERY 6 HOURS ORAL 10/23/18 18:00 11/21/18 00:00 10/27/18 12:00 Docusate Sodium (Colace) 100 mg THREE TIMES A DAY ORAL 10/23/18 18:00 11/20/18 12:59 10/27/18 12:00 Enoxaparin Sodium (Lovenox) 30 mg EVERY 12 HOURS SUBQ 10/23/18 21:00 11/20/18 15:59 11/26/18 08:55 Ferrous Sulfate (Feosol) 325 mg THREE TIMES A DAY ORAL 10/23/18 18:00 11/20/18 12:59 10/27/18 12:00 Magnesium Hydroxide (Mom) 30 ml DAILYPRN PRN ORAL Constipation 10/23/18 18:00 11/22/18 17:59 Ondansetron HCl (Zofran) 4 mg Q6H PRN IVP Nausea & Vomiting 10/23/18 18:00 11/20/18 11:59 Salmeterol Xinafoate/ Fluticasone (Advair 250/50 Diskus) 1 puffs BID INH 10/23/18 18:00 11/20/18 17:59 10/26/18 19:25 Tiotropium [place] (Spiriva Inhaler) 1 puff DAILY INH 10/24/18 09:00 11/21/18 08:59 10/26/18 09:37 Tramadol HCl (Ultram) 50 mg Q4H PRN ORAL PAIN 4-10 10/23/18 18:00 10/28/18 17:59 10/24/18 21:14 Matthew Rodriguez MD Oct 27, 2018 15:23
--- NOTE | 2018-10-28 12:02 | Discharge Summary ---
Discharge Summary Discharge Summary _ DATE OF ADMISSION: 10/21/2018 DATE OF DISCHARGE: 10/27/2018 REASON FOR ADMISSION: 68 years old on female with past medical history of end-stage right knee arthritis, severe COPD, former smoker ( 2 packs a day), home oxygen dependent on and off , minimally compliant with inhalers, hypertension, presented for elective surgery right total knee arthroplasty. CONSULTANTS/ATTENDING: pulmonary surgery doctor -Dr. Helms HOSPITAL COURSE: Patient admitted for elective surgery -right total knee arthroplasty secondary to end-stage arthritis right knee with significant pain. Patient subsequently undergone right total knee arthroplasty. Postoperatively patient was transferred to PACU and subsequently to medical surgical floor. Later that day patient became tachycardic , lethargic and unresponsive. Blood pressure dropped from baseline. Rapid response team was called. Patient was given Narcan with some improvement in mental status. Bolus IV fluids given. EKG showed sinus tachycardia, no acute ischemic changes. ABG on 5 L nasal cannula revealed severe hypercapnia with pH 7.09 and PCO2 104.8. Patient was placed on BiPAP and transferred to ICU for further management. OxyCodone stopped, analgesics changed to Tylenol for [id number] pain and tramadol for severe pain. Felt Pad Cutter closely followed. Pulmonary hygiene was optimized. Bipap continued , and FiO2 titrated to keep pulse oximetry above 90%. Patient started on Advair and Spiriva. Nebulizing treatment with bronchodilator provided around the clock and as needed. DVT prophylaxis with a Lovenox provided. Patient was followed up with her ABG and chest x-ray. Chest x-ray revealed cardiomegaly , but no definite acute process. Markedly elevated left hemidiaphragm. Venous duplex bilateral lower extremity revealed no evidence of DVT. Echocardiogram revealed normal left ventricular chamber size, systolic function and wall motion to extent visualized. Left ventricular ejection fraction estimated to be grossly normal. Mild left ventricular hypertrophy noted. Right ventricular systolic pressure of 41 consistent with mild pulmonary hypertension. Patient was slowly improving. Mental status returned to baseline. Patient was mobilized as tolerated. Incentive spirometry encouraged while in the bed every 1 hour. Patient was able to be weaned from the BiPAP to oxygen via nasal cannula. Heart rate stabilized. Patient was able to work with physical and occupational therapists. Fall precautions maintained. CPM machine continued. Blood pressure was managed with calcium channel ruth and remained stable. Patient remained hemodynamically stable. Incision clean. Pain controlled. Bowel regimen instituted. Patient required further rehabilitation and was subsequently transferred to [facility] facility for continuation of care FINAL DIAGNOSES: Right knee end-stage arthritis with significant pain Status post right total knee arthroplasty Acute on chronic hypercapnic and hypoxemic respiratory failure Severe COPD with home O2 dependency on/ off Former smoker Hypertension DISCHARGE MEDICATIONS: List of medication was sent accepting facility. DISCHARGE INSTRUCTIONS: Patient was discharged to [facility] for further rehabilitation and management I have been assigned to dictate discharge summary for this account. I was not involved in the patient's management. Elsa West NP Oct 28, 2018 12:02
== END 2018-10-27 14:30 | DRG 469 ==
LOC: SDSOVERFLO 05:24 → 3E 11:00 → ICU 19:45 → 3E 10-23 16:23
PROC: 0SRC0J9 Replacement of Right Knee Joint with Synthetic Substitute, Cemented, Open Approach (ICD-10-PCS; principal; 2018-10-21 07:00)
DX: M17.11 Unilateral primary osteoarthritis, right knee (principal); J96.22 Acute and chronic respiratory failure with hypercapnia; J96.21 Acute and chronic respiratory failure with hypoxia; J98.11 Atelectasis; J44.9 Chronic obstructive pulmonary disease, unspecified; Z99.81 Dependence on supplemental oxygen; R00.0 Tachycardia, unspecified; I10 Essential (primary) hypertension; I95.89 Other hypotension
CPT/HCPCS: 36415; 36600; 71045; 80048; 82803; 85007; 85025; 86850; 86900; 86901; 86920; 87081; 93005; 93306; 93970; 94003; 94150; 94640; 94660; 94664; 94760; J2405; J3490; J7620